=== PATIENT | female | born 1960 | race African-American/Black ===

== ENCOUNTER 2016-06-07 09:47 | Inpatient (IN) | payer MEDICAID ==
[~2016-06-07] VITALS: Ht 157.5 cm; Wt 102.5 kg
[~2016-06-07 09:47] MED LIST: ACTOS15 MG PO; ADALAT PO; ASPIRIN81 M1 PO; ATIVAN0.5 MG PO; ATIVAN1 MG PO; BACTRIM DS 800/1 TAB PO; CATAPRES0.1 MG PO; CLONIDINE0.1 M1 PO; CLONIDINE0.2 M1 PO; GLIPIZIDE5 M1 PO; GLUCOTROL10 M1 PO; GLUCOTROL10 MG PO; GLUCOTROL5 M1; LASIX20 M1 PO; LASIX40 M1 PO; LASIX40 MG PO; MACROBID100 M1 PO; METFORMIN500 MG PO; METFORMIN850 MG PO; NORCO 5/325 MG1 TAB PO; PROVENTIL0.09 MG/A1 IH; PROZAC20 M1 PO; PROZAC20 MG PO; RESPERDAL; ROBITUSSIN/CODEI5 ML PO; SEROQUEL100 MG PO; SEROQUEL300 MG; TRAZODONE HCL300 MG PO; ZANTAC150 MG PO; ZITHROMAX250 MG PO; [UNRECOGNIZED DRUG - OTHER]
[2016-06-07 09:56] VITALS: BP 116/79
--- NOTE | 2016-06-07 10:10 | NUR ---
56/F BIB c/o intermittent anterior chest wall sharp pain radiating to left flank x yesterday. PT STATES PT COUGH & SORE THROAT X 4 DAYS. hx dm, htn, kidney stone, chf;rx asa, clonidine. PT STATES HAS NAUSEA BUT DENIES V/D; SKIN IS PINK/WARM/DRY; AAOX4 WITH EVEN AND STEADY GAIT; LUNGS CLEAR BL; HR EVEN AND REGULAR; PT DENIES ANY FEVER, CP, SOB, OR COUGH AT THIS TIME; PATIENT STATES PAIN OF 10/10 AT THIS TIME; VSS; PATIENT POSITIONED FOR COMFORT; HOB ELEVATED; BEDRAILS UP X2; BED DOWN. ER MD MADE AWARE OF PT STATUS.
--- NOTE | 2016-06-07 10:10 | NUR ---
Note undone in EDM - 06/07/16 at 1022 by [email or web address] c/o intermittent anterior chest wall sharp pain radiating to left flank x yesterday; dysuria, left flank pain;hx dm, htn, kidney stone, chf;rx asa, clonidine. PATIENT PRESENTS TO ED WITH . PT STATES N BUT DENIES V/D; SKIN IS PINK/WARM/DRY; AAOX4 WITH EVEN AND STEADY GAIT; LUNGS CLEAR BL; HR EVEN AND REGULAR; PT DENIES ANY FEVER, CP, SOB, OR COUGH AT THIS TIME; PATIENT STATES PAIN OF 10/10 AT THIS TIME; VSS; PATIENT POSITIONED FOR COMFORT; HOB ELEVATED; BEDRAILS UP X2; BED DOWN. ER MD MADE AWARE OF PT STATUS.
--- NOTE | 2016-06-07 10:10 | NUR ---
Note undone in EDM - 06/07/16 at 1509 by [email or web address] 56/F BIB c/o intermittent anterior chest wall sharp pain radiating to left flank x yesterday. PT STATES PT COUGH & SORE THROAT X 4 DAYS. hx dm, htn, kidney stone, chf;rx asa, clonidine. PATIENT PRESENTS TO ED WITH . PT STATES N BUT DENIES V/D; SKIN IS PINK/WARM/DRY; AAOX4 WITH EVEN AND STEADY GAIT; LUNGS CLEAR BL; HR EVEN AND REGULAR; PT DENIES ANY FEVER, CP, SOB, OR COUGH AT THIS TIME; PATIENT STATES PAIN OF 10/10 AT THIS TIME; VSS; PATIENT POSITIONED FOR COMFORT; HOB ELEVATED; BEDRAILS UP X2; BED DOWN. ER MD MADE AWARE OF PT STATUS.
[2016-06-07] MEDS ORDERED: NITROGLYCERIN 0.4 MG TAB SL ONE (10:20)
[2016-06-07] MEDS ORDERED: HYDROmorphone 1 MG/ML AMP IVP ONE ×2 (10:40→13:35)
[2016-06-07] MEDS ORDERED: ONDANSETRON 4 MG/2 ML VIAL IVP ONE (10:40)
[2016-06-07] MEDS ORDERED: ASPIRIN 325 MG TAB PO ONE (10:40)
[2016-06-07] MEDS ORDERED: diphenhydrAMINE 50 MG/ML VIAL IVP ONE (11:20)
[2016-06-07] MEDS ORDERED: NACL 0.9% 1,000 ML IV ONE (12:00)
[2016-06-07] MEDS ORDERED: cefTRIAXone 2,000 MG in DEXTROSE 5% 100 ML IV ONE (12:00)
[2016-06-07] MEDS ORDERED: cefTRIAXone 2,000 MG VIAL ONE (12:11)
[2016-06-07] MEDS ORDERED: KETOROLAC 30 MG/ML VIAL IM ONE (13:30)
--- NOTE | 2016-06-07 15:09 | NUR ---
Patient will be admitted to care of DR FRANCOIS. Admited to ICU. Will go to room 2. Belongings list completed. Report to KOFFI MARLEY.
--- NOTE | 2016-06-07 15:09 | NUR ---
GAVE REPORT TO KOFFI MARLEY
--- NOTE | 2016-06-07 15:20 | NUR ---
RECEIVED PATIENT FROM ER AT 1520. PT IS AAOX4, ON ROOM AIR WITH NO S/S DISTRESS OR SOB. PT PLACED ON SPECIAL SHOPPER RUNNING SINUS RHYTHM AT THIS TIME. PT HAS RIGHT AC 20G IV RUNNING IVF AT THIS TIME. PT'S SKIN IS WARM, DRY, AND INTACT. PT IS AMBULATORY. PT C/O CHEST RADIATING TO LEFT FLANK. PT RECEIVED A TOTAL OF 1.5MG DILAUDID IN ER, LAST GIVEN AT 1330. SAFETY MEASURES CHECKED, CALL LIGHT LEFT AT BEDSIDE. WILL CONTINUE TO MONITOR.
--- NOTE | 2016-06-07 15:30 | NUR ---
PT ASKING FOR FOOD. NOTIFIED DIETARY AND MESSAGE LEFT.
[2016-06-07] MEDS ORDERED: HYDROmorphone 1 MG/ML AMP IVP PRN (15:35)
[2016-06-07] MEDS ORDERED: ALBUTEROL 0.083% 2.5 MG/3 ML NEBU IH PRN (15:35)
[2016-06-07] MEDS ORDERED: DEXTROSE 50% 50 ML SYR IVP PRN (15:40)
[2016-06-07] MEDS ORDERED: ZOLPIDEM 5 MG TAB PO PRN (15:40)
[2016-06-07] MEDS ORDERED: ACETAMINOPHEN 325 MG TAB PO PRN (15:40)
[2016-06-07] MEDS ORDERED: METOPROLOL 25 MG TAB PO SCH ×2 (15:50→16:30)
--- NOTE | 2016-06-07 15:50 | NUR ---
OFFERED SANDWICH FOR PATIENT.
[2016-06-07 16:00] VITALS: BP 132/85
[2016-06-07] MEDS ORDERED: ATORVASTATIN 20 MG TAB PO SCH (16:30)
[2016-06-07] MEDS: metFORMIN 850 MG TAB PO SCH (16:34)
[2016-06-07] MEDS: glipiZIDE 10 MG TAB PO SCH (16:35)
[2016-06-07] MEDS: ONDANSETRON 4 MG/2 ML VIAL IVP PRN ×2 (16:37→20:37)
[2016-06-07] MEDS: INSULIN LISPRO SLIDING SCALE 100 UNITS/ML VIAL SUBQ PRN ×2 (16:42→20:45)
[2016-06-07] MEDS: BLOOD GLUCOSE MONITORING 1 DEV DEV FS SCH ×2 (16:43→20:44)
[2016-06-07] MEDS: NACL 0.9% 1,000 ML IV SCH (16:43)
[2016-06-07] MEDS: HYDROcodone/APAP 5/325 MG 1 TAB TAB PO PRN ×2 (16:47→20:36)
--- NOTE | 2016-06-07 17:00 | NUR ---
US TECH AT BEDSIDE. PT RECEIVING JAYNE SMALL US STUDY.
--- NOTE | 2016-06-07 17:15 | NUR ---
MILK TRUCK DRIVER AT BEDSIDE.
--- NOTE | 2016-06-07 17:24 | NUR ---
DR. MOSS AT NURSING STATION. UPDATED MD ON PATIENT CONDITION.
[2016-06-07] MEDS: HYDROmorphone 1 MG/ML AMP IVP PRN (18:10)
[2016-06-07] MEDS: LORazepam 1 MG TAB PO PRN (18:11)
[2016-06-07] MEDS ORDERED: ALBUTEROL SULFATE/IPRATROPIU 3 ML SOL IH PRN (18:15)
--- NOTE | 2016-06-07 18:30 | NUR ---
REPORT GIVEN TO RICHIE RAIN.
--- NOTE | 2016-06-07 18:45 | NUR ---
PT TRANSFERRED TO TELE. ATTACHED TO TELE MONITORING. PT TOLERATED WELL.
[2016-06-07] MEDS: NICOTINE TRANSD SYS 7 MG/24 HR PATCH TD SCH (18:54)
[2016-06-07 19:00] VITALS: BP 145/83
--- NOTE | 2016-06-07 19:00 | NUR ---
RECEIVED PT FROM ICU. ALERT ORIENTEDX4. NO SOB NOTED. BREATHING EVEN AND UNLABORED. DENIES ANY PAIN OR DISCOMFORT AT THIS TIME. POSITIVE BOWEL SOUNDS NOTED ON FOUR ABDOMINAL QUADRANTS. SKIN INTACT. PT AMBULATORY. DENIES ANY PAIN WITH BOWEL OR BLADDER ELIMINATION. SKIN INTACT. VITALS STABLE AND FOLLOWS RR 21, BP 145/83, NJ 88, 02 SAT ON ROOM AIR 98%. ENDORSED TO UPCOMING SHIFT ON STABLE CONDITION.
--- NOTE | 2016-06-07 19:15 | NUR ---
RECEIVED REPORT FROM MORNING SHIFT NURSE AT BEDSIDE, PT JUST TRANSFERRED FROM ICU. PT IS AAOX4. NO SOB/DISTRESS NOTED, BREATHING EVEN AND UNLABORED, CLEAR LUNG SOUNDS, ON RA. DENIES ANY CHEST PAIN, ON TELE MONITOR WITH SR. SOFT ABD WITH POSITIVE BOWEL SOUNDS TO 4 QUADRANTS. AFEBRILE, SKIN INTACT, WARM AND DRY IN TOUCH. IV SITE TO RIGHT AC 20GA RUNNING WITH NS. ABLE TO MOVE ALL EXTREMITIES, GENERALIZED WEAKNESS NOTED, ABLE AMBULATORY WITH MINIMUM ASSIST. CONTINENT WITH B&B'S. VSS. EXPLAINED PLAN OF CARE TO PATIENT, SAFETY MEASURES MAINTAINED, CALL LIGHT WITHIN REACH, WILL CONTINUE TO MONITOR.
--- NOTE | 2016-06-07 19:39 | NUR ---
NO DISTRESS/SOB/WHEEZING NOTED AT THIS TIME. NO INDICATION FOR HHN PRN TX.
[2016-06-07 20:00] VITALS: BP 122/84
[2016-06-07] MEDS: cloNIDine 0.1 MG TAB PO SCH (20:35)
--- NOTE | 2016-06-07 20:35 | NUR ---
PT C/O SHARP CHEST PAIN, 11/30, VSS, MEDICATED AND EDUCATED. REDUCED PAIN AFTER NITROGLYCERIN GIVEN. WILL CONTINUE TO MONITOR.
[2016-06-07] MEDS: NITROGLYCERIN 0.4 MG TAB SL PRN (20:36)
[2016-06-07] MEDS: QUEtiapine FUMARATE 100 MG TAB PO SCH (20:37)
[2016-06-07] MEDS: METOPROLOL 25 MG TAB PO SCH (20:37)
--- NOTE | 2016-06-07 21:10 | NUR ---
NO C/O CHEST PAIN AT THIS TIME, SCHEDULED MEDICATION GIVEN, ACCU CHECK WITH 172MG/DL, INSULIN GIVEN ORDERED, PT TOLERATED WELL.
[2016-06-08] VITALS: BP 118/78
--- NOTE | 2016-06-08 | NUR ---
PT IS ASLEEP SOUNDLY, NO S/S OF SOB/DISTRESS, VSS.
[2016-06-08 04:00] VITALS: BP 112/72
--- NOTE | 2016-06-08 04:00 | NUR ---
NO CHANGE OF CONDITION AT THIS TIME, VSS. NO C/O CHEST PAIN
[2016-06-08] MEDS: NACL 0.9% 1,000 ML IV SCH (05:59)
[2016-06-08] MEDS: BLOOD GLUCOSE MONITORING 1 DEV DEV FS SCH ×4 (06:36→20:28)
[2016-06-08] MEDS: NITROGLYCERIN 0.4 MG TAB SL PRN (06:43)
[2016-06-08] MEDS: ONDANSETRON 4 MG/2 ML VIAL IVP PRN ×3 (06:43→12:10)
[2016-06-08] MEDS: HYDROmorphone 1 MG/ML AMP IVP PRN (06:48)
--- NOTE | 2016-06-08 07:10 | NUR ---
REPORT GIVEN TO MORNING SHIFT NURSE FOR CONTINUE OF CARE, PT IS IN STABLE CONDITION AT THIS TIME.
--- NOTE | 2016-06-08 07:15 | NUR ---
RECEIVED PATIENT REPORT. PATIENT ASLEEP BUT EASILY AROUSABLE. NO S/S OF DISTRESS NOTED. PATIENT ON ROOM AIR. IV TO THE RIGHT AC INTACT WITH IVF INFUSING WELL. PATIENT ON TELE MONITORING. BED LOWERED WITH CALL LIGHT WITHIN REACH. WILL CONTINUE TO MONITOR
--- NOTE | 2016-06-08 07:55 | NUR ---
PATIENT HAS BEEN SCREENED AND CATEGORIZED HIGH NUTRITION RISK. PATIENT WILL BE SEEN WITHIN 1-2 DAYS OF ADMISSION. 06/08/16-06/09/[address]
[2016-06-08 08:00] VITALS: BP 112/95
[2016-06-08] MEDS: ALBUTEROL SULFATE/IPRATROPIU 3 ML SOL IH SCH ×5 (08:30→23:40)
[2016-06-08] MEDS ORDERED: ALBUTEROL SULFATE/IPRATROPIU 3 ML SOL IH PRN (08:30)
[2016-06-08] MEDS ORDERED: MAG SULF 2000 MG/WATER PREMIX 100 ML IV ONE (08:35)
[2016-06-08] MEDS ORDERED: BUDESONIDE 0.5 MG/2 ML NEBU INH SCH (08:45)
--- NOTE | 2016-06-08 08:49 | NUR ---
TANN DALI HHN WAS GIVEN AT 0714 BEFORE ORDER CHANGE
[2016-06-08] MEDS: FUROSEMIDE 40 MG TAB PO SCH ×3 (09:00→12:09)
[2016-06-08] MEDS ORDERED: FUROSEMIDE 40 MG TAB PO SCH ×2 (09:00→21:00)
[2016-06-08] MEDS: NIFEdipine 60 MG TABER PO SCH (09:02)
[2016-06-08] MEDS: metFORMIN 850 MG TAB PO SCH ×4 (09:03→17:08)
[2016-06-08] MEDS: ATORVASTATIN 20 MG TAB PO SCH (09:03)
[2016-06-08] MEDS: ASPIRIN 81 MG TAB.CHEW PO SCH (09:03)
[2016-06-08] MEDS: glipiZIDE 10 MG TAB PO SCH ×2 (09:03→17:08)
[2016-06-08] MEDS: DOCUSATE SODIUM 100 MG GELCAP PO SCH (09:04)
[2016-06-08] MEDS: METOPROLOL 25 MG TAB PO SCH ×2 (09:04→20:24)
[2016-06-08] MEDS: cloNIDine 0.1 MG TAB PO SCH ×2 (09:04→20:24)
[2016-06-08] MEDS: PANTOPRAZOLE 40 MG INJ VIAL IVP SCH (09:05)
--- NOTE | 2016-06-08 10:55 | NUR ---
NOTIFIED DR MOSS ABOUT PT'S MAGNESIUM LEVEL OF 1.3
--- NOTE | 2016-06-08 11:30 | NUR ---
PT C/O CHEST PAIN. PATIENT UPSET WHEN TOLD THAT DILAUDID HAS BEEN DISCONTINUED. PT TOLD THAT NITROGLYCERIN IS ORDERED PRN FOR CHEST PAIN. PT REFUSED. DR MOSS NOTIFIED
[2016-06-08] MEDS ORDERED: HYDROmorphone 1 MG/ML AMP IVP PRN (11:45)
[2016-06-08 12:00] VITALS: BP 126/83
[2016-06-08] MEDS: INSULIN LISPRO SLIDING SCALE 100 UNITS/ML VIAL SUBQ PRN ×3 (12:25→20:26)
[2016-06-08] MEDS ORDERED: MAG SULF 2000 MG/WATER PREMIX 50 ML IV SCH (12:30)
--- NOTE | 2016-06-08 13:55 | NUR ---
PATIENT ASLEEP IN BED. NO S/S OF DISTRESS NOTED
--- NOTE | 2016-06-08 14:29 | NUR ---
06/08/16 RD INITIAL ASSESSMENT COMPLETED PLEASE REFER TO NUTRITION ASSESSMENT UNDER CARE ACTIVITY FOR ESTIMATED NUTRITIONAL NEEDS. RD RECOMMENDATIONS: CONTINUE OF CARDIAC CCHO 60 GM DIET TOLERATED. --PT MEETING 100% OF NUTRITIONAL NEEDS RD GAVE PT DM DIET EDUCATION, PT ACCEPTED. 3. RD WILL F/U 5-7 DAYS; LOW RISK. BERTRAM JEFFERSON, RD
[2016-06-08 16:00] VITALS: BP 121/75
--- NOTE | 2016-06-08 16:03 | NUR ---
PER [facility], PATIENT OOA. FAX REVIEW TO [facility] FAXED INITIAL REVIEW TO [facility] [phone] PHONE [phone]
--- NOTE | 2016-06-08 16:30 | NUR ---
ATTEMPTED MULTIPLE TIMES TO ESTABLISH A NEW IV LINE BUT UNSUCCESSFUL. MG RIDER ORDERED NOT INFUSED FULLY. DR SIN NOTIFIED. ORDERS RECEIVED
[2016-06-08] MEDS ORDERED: MAGNESIUM OXIDE 400 MG TAB PO SCH (17:00)
[2016-06-08] MEDS ORDERED: ONDANSETRON 4 MG TAB PO PRN (17:20)
[2016-06-08] MEDS: NICOTINE TRANSD SYS 7 MG/24 HR PATCH TD SCH (17:58)
[2016-06-08] MEDS: HYDROmorphone 1 MG/ML AMP IM/IV PRN ×2 (17:59→21:13)
--- NOTE | 2016-06-08 19:30 | NUR ---
RECEIVED REPORT FROM DAY RN AT BEDSIDE, PATIENT IS RESTING IN BED, AAOX4 ON ROOM AIR, NO SOB OR SIGN OF DISTRESS AT THIS TIME, PATIENT HAS NO IV ACCESS AT THIS TIME, WILL NEED TO INSERT NEW IV, SKIN INTACT, DISCUSSED PLAN OF CARE WITH PATIENT, VERBALIZED UNDERSTANDING, SAFETY MEASURES CHECKED, CALL LIGHT WITHIN REACH. WILL CONTINUE TO MONITOR.
[2016-06-08] MEDS: BUDESONIDE 0.5 MG/2 ML NEBU INH SCH (19:35)
--- NOTE | 2016-06-08 19:36 | NUR ---
PATIENT REPORT GIVEN AT BEDSIDE. ENDORSED PATIENT IN STABLE CONDITION
[2016-06-08 20:00] VITALS: BP 130/82
[2016-06-08] MEDS: LORazepam 1 MG TAB PO PRN (20:25)
[2016-06-08] MEDS: QUEtiapine FUMARATE 100 MG TAB PO SCH ×2 (20:31→21:41)
--- NOTE | 2016-06-08 20:31 | NUR ---
PM MEDS ADMINISTERED PATIENT TOLERATED WELL, PT REFUSED SEROQUEL, CALL LIGHT WITHIN REACH, NEW IV STARTED TO LFA IVF INFUSING WELL, CALL LIGHT WITHIN REACH. WILL CONTINUE TO MONITOR
--- NOTE | 2016-06-08 21:44 | NUR ---
PATIENT CHANGED HER MIND AND WANTED SEROQUEL, ADMINISTERED PER MD ORDER PATIENT TOLERATED WELL, CALL LIGHT WITHIN REACH. WILL CONTINUE TO MONITOR.
[2016-06-09] VITALS: BP 121/76
--- NOTE | 2016-06-09 00:10 | NUR ---
PATIENT SLEEPING COMFORTABLE, NO SOB OR SIGN OF DISTRESS, VITAL SIGNS STABLE, CALL LIGHT WITHIN REACH. WILL CONTINUE TO MONITOR
[2016-06-09] MEDS: HYDROmorphone 1 MG/ML AMP IM/IV PRN (02:13)
--- NOTE | 2016-06-09 02:15 | NUR ---
ADMINISTERED PAIN MED PER MD ORDER, PATIENT BACK TO SLEEP NO SOB OR SIGN OF DISTRESS, CALL LIGHT WITHIN REACH. WILL CONTINUE TO MONITOR
[2016-06-09] MEDS ORDERED: BACLOFEN 10 MG TAB PO PRN (02:45)
[2016-06-09] MEDS: ALBUTEROL SULFATE/IPRATROPIU 3 ML SOL IH SCH ×4 (03:20→15:37)
[2016-06-09 04:00] VITALS: BP 112/80
--- NOTE | 2016-06-09 04:15 | NUR ---
VITAL SIGNS STABLE, NO SOB OR SIGN OF DISTRESS, CALL LIGHT WITHIN REACH. WILL CONTINUE TO MONITOR.
[2016-06-09] MEDS: INSULIN LISPRO SLIDING SCALE 100 UNITS/ML VIAL SUBQ PRN ×3 (05:40→16:29)
[2016-06-09] MEDS: oxyCODONE/APAP 5/325 MG 1 TAB TAB PO PRN ×2 (06:00→12:08)
[2016-06-09] MEDS: BLOOD GLUCOSE MONITORING 1 DEV DEV FS SCH ×3 (06:57→16:28)
[2016-06-09] MEDS: glipiZIDE 10 MG TAB PO SCH ×2 (07:02→16:36)
[2016-06-09] MEDS: BUDESONIDE 0.5 MG/2 ML NEBU INH SCH (07:23)
--- NOTE | 2016-06-09 07:30 | NUR ---
RECEIVED REPORT FROM NIGHT NURSE. PT AOX4, ABLE TO VERBALIZE NEEDS. SURVEY INSTRUMENT OPERATOR IN PLACE. SCDS IN PLACE. IV SITE ASYMPTOMATIC, PATENT AND INTACT. IV SALINE LOCKED. PT C/O PAIN, SEE PAIN ASSESSMENT, ALREADY MEDICATED ORDERED. DISCUSSED AND REVIEWED PLAN OF CARE, PT VERBALIZES UNDERSTANDING. SAFETY MEASURES ENSURED. CALL LIGHT WITHIN REACH. WILL CONTINUE TO MONITOR.
--- NOTE | 2016-06-09 07:33 | NUR ---
ENDORSED PATIENT TO DAY RN AT BEDSIDE, PATIENT IN STABLE CONDITION
[2016-06-09 07:51] VITALS: BP 133/82
[2016-06-09] MEDS: ATORVASTATIN 20 MG TAB PO SCH (08:17)
[2016-06-09] MEDS: NIFEdipine 60 MG TABER PO SCH (08:18)
[2016-06-09] MEDS: ASPIRIN 81 MG TAB.CHEW PO SCH (08:19)
[2016-06-09] MEDS: METOPROLOL 25 MG TAB PO SCH (08:21)
[2016-06-09] MEDS: metFORMIN 850 MG TAB PO SCH ×3 (08:22→16:37)
[2016-06-09] MEDS: PANTOPRAZOLE 40 MG INJ VIAL IVP SCH (08:23)
[2016-06-09] MEDS ORDERED: TAMSULOSIN 0.4 MG CAP PO SCH ×2 (08:30)
[2016-06-09] MEDS: cloNIDine 0.1 MG TAB PO SCH (08:30)
[2016-06-09] MEDS: FUROSEMIDE 40 MG TAB PO SCH ×2 (08:31→16:37)
[2016-06-09] MEDS: DOCUSATE SODIUM 100 MG GELCAP PO SCH (08:32)
[2016-06-09] MEDS: LORazepam 1 MG TAB PO PRN (08:32)
--- NOTE | 2016-06-09 08:50 | NUR ---
MEDICATIONS ADMINISTERED WITH EDUCATION. PT VERBALIZES UNDERSTANDING. PT TOLERATED WELL. PT OBSERVED TO PERFORM ADLS INDEPENDENTLY. COOLING MEASURES IN PLACE. SAFETY MEASURES ENSURED. WILL CONTINUE TO MONITOR.
[2016-06-09] MEDS ORDERED: FLOMAX0.4 MG PO (11:55)
[2016-06-09] MEDS ORDERED: MOTRIN600 MG PO (11:55)
[2016-06-09] MEDS ORDERED: PULMICORT180 MCG/Ac IH (11:55)
[2016-06-09] MEDS ORDERED: VENTOLIN H0.09 MG/Ac IH (11:55)
[2016-06-09 12:00] VITALS: BP 118/92
[2016-06-09] MEDS ORDERED: MAGNESIUM OXIDE 400 MG TAB PO SCH (12:00)
[2016-06-09] MEDS ORDERED: NORCO 325 MG-7.1 TAB PO (12:08)
--- NOTE | 2016-06-09 12:10 | NUR ---
PT RESTING IN BED, CONDITION STABLE. ALL NEEDS MET. SAFETY MEASURES IN PLACE. WILL CONTINUE TO MONITOR.
[2016-06-09] MEDS ORDERED: COLACE100 M1 PO (12:15)
[2016-06-09] MEDS ORDERED: ADVAIR DISKUS 21 DSK IH (12:16)
[2016-06-09] MEDS ORDERED: PERCOCET 325 MG1 TA4 PO (12:55)
[2016-06-09 13:29] VITALS: BP 118/92
--- NOTE | 2016-06-09 13:35 | NUR ---
DC ORDERS ACKNOWLEDGED, DISCUSSED WITH PATIENT; PT STATES WILL PICK HER UP AFTER WORK AROUND 1600 TODAY.
--- NOTE | 2016-06-09 14:29 | NUR ---
BACLOFEN GIVEN FOR LOWER BACK SPASMS. RELAXATION TECHNIQUES AND WARM PACK APPLIED.
--- NOTE | 2016-06-09 15:30 | NUR ---
REASSESSED PT AT THIS TIME, SEEN RESTING QUIETLY IN BED.
[2016-06-09 16:00] VITALS: BP 122/71
[2016-06-09] MEDS ORDERED: oxyCODONE/APAP 5/325 MG 1 TAB TAB PO SCH (16:15)
--- NOTE | 2016-06-09 18:40 | NUR ---
DISCHARGED PT HOME AT THIS TIME IN STABLE CONDITION, BUS PASS PROVIDED BY PROJECT DESIGN ENGINEER. PRESENT.
== END 2016-06-09 18:40 | disposition home or self-care (01) | DRG 203 ==
LOC: MED 09:47 → MIC 15:06 → MTU 18:43
PROVIDERS: ADMIT Family Medicine; ATTEND Family Medicine
DX: M94.0 Chondrocostal junction syndrome [Tietze] (principal); E43 Unspecified severe protein-calorie malnutrition; D68.69 Other thrombophilia; E11.40 Type 2 diabetes mellitus with diabetic neuropathy, unspecified; I50.9 Heart failure, unspecified; E11.65 Type 2 diabetes mellitus with hyperglycemia; I11.0 Hypertensive heart disease with heart failure; J44.9 Chronic obstructive pulmonary disease, unspecified; F41.9 Anxiety disorder, unspecified; E66.01 Morbid (severe) obesity due to excess calories; E83.42 Hypomagnesemia; E78.1 Pure hyperglyceridemia; Z53.29 Procedure and treatment not carried out because of patient's decision for other reasons; R51 Headache; M79.605 Pain in left leg; M79.604 Pain in right leg; F17.210 Nicotine dependence, cigarettes, uncomplicated; N20.0 Calculus of kidney; Z88.1 Allergy status to other antibiotic agents; Z68.41 Body mass index [BMI] 40.0-44.9, adult; Z71.3 Dietary counseling and surveillance; Z88.5 Allergy status to narcotic agent; Z79.82 Long term (current) use of aspirin; Z79.899 Other long term (current) drug therapy; Z28.21 Immunization not carried out because of patient refusal

== ENCOUNTER 2016-07-26 14:06 | Emergency (ER) | payer MEDICAID ==
[~2016-07-26] VITALS: Ht 157.5 cm; Wt 99.8 kg
[~2016-07-26 14:06] MED LIST changes: +ADVAIR DISKUS 21 DSK IH; +COLACE100 M1 PO; +FLOMAX0.4 MG PO; +MOTRIN600 MG PO; +NORCO 325 MG-7.1 TAB PO; +PERCOCET 325 MG1 TA4 PO; +PULMICORT180 MCG/Ac IH; +VENTOLIN H0.09 MG/Ac IH
[2016-07-26 14:24] VITALS: BP 124/98
--- NOTE | 2016-07-26 14:31 | NUR ---
PATIENT WANTED TO WAIT IN THE WAITING ROOM. NO APPARENT DISTRESS
--- NOTE | 2016-07-26 14:31 | NUR ---
EKG REVIEWED BY MIKAELA
--- NOTE | 2016-07-26 14:47 | NUR ---
LUNG SOUNDS DIMINISHED THROUGHOUT.ERMD MADE AWARE
--- NOTE | 2016-07-26 14:48 | NUR ---
WALKED PUT OF THE ER WITH ADMITTING TO THE FRONT LOBBY TO COMPLAIN. PATIENT AMBULATED WITH STEADY GAIT/WALKED FAST WITH NO DISTRESS.NO SOB. ERMD MADE AWARE
--- NOTE | 2016-07-26 15:00 | NUR ---
PATIENT BACK TO ER LOBBY WITH SECURITY
[2016-07-26] MEDS ORDERED: ALBUTEROL SULFATE/IPRATROPIU 3 ML SOL IH ONE (15:15)
--- NOTE | 2016-07-26 15:16 | NUR ---
PATIENT TAKEN TO OF. RESP.TX AND CXR /CBC /CMP ORDERED BY MIKAELA.
--- NOTE | 2016-07-26 15:20 | NUR ---
PATIENT TAKEN TO XR
--- NOTE | 2016-07-26 15:25 | NUR ---
PATIENT OUT OF ED OVER FLOW IN RADIOLOGY ENVIRONMENTAL SCIENCE PROGRAM DIRECTOR TO ATEMPT HHN THERAPY AT A LATER TIME
--- NOTE | 2016-07-26 15:36 | NUR ---
ADMITING DX: SOB LOC AWAKE AND ALERT RESPONSIVE TO TRANSCRIPTION TYPIST VERBAL COMMANDS SITTIGN UP IN CHAIR OVERFLOW AREA EDUCATION PROVIDED TO PATIENT ON HHN THERAPY AND RESIRATORY DRUG HHN THERAPY GIVEN ORDERED ENCOURAGED DEEP BREATH AND COUGH DURING THERAPY TOLERATED WELL WITHOUT INCIDENT
--- NOTE | 2016-07-26 15:42 | NUR ---
RESP.TX IN PROGRESS
--- NOTE | 2016-07-26 15:51 | NUR ---
RESP. TX COMPLETED.PATIENT LESS COUGH. STILL IN OF. NO AVAIL. BED AT THIS TIME
--- NOTE | 2016-07-26 15:58 | NUR ---
PAIN LEVEL 8/10. WILL CONSULT ERMD FOR DISPOSITION.
--- NOTE | 2016-07-26 16:41 | NUR ---
PATIENT NO APPARENT DISTRESS. AMBULATED TO BR STEADY GAIT.USING CELL PHONE
[2016-07-26] MEDS ORDERED: HYDROcodone/APAP 10/325 MG 1 TAB TAB PO ONE (17:20)
--- NOTE | 2016-07-26 17:29 | NUR ---
MEDICATED FOR CHEST WALL PAIN WITH COUGH
[2016-07-26 18:00] VITALS: BP 150/86
--- NOTE | 2016-07-26 18:04 | NUR ---
Patient discharged with v/s stable. Written and verbal after care instructions given and explained. Patient alert, oriented and verbalized understanding of instructions. Ambulatory with steady gait. All questions addressed prior to discharge. ID band removed. Patient advised to follow up with PMD. Rx of NORTYSON DEMARCO given. Patient educated on indication of medication including possible reaction and side effects. Opportunity to ask questions provided and answered.
--- NOTE | 2016-07-26 18:05 | NUR ---
PATIENT WANTED TO KEEP ID BRACELET
== END 2016-07-26 18:04 | disposition home or self-care (01) ==
LOC: MED 14:06
DX: J44.9 Chronic obstructive pulmonary disease, unspecified (principal); E11.9 Type 2 diabetes mellitus without complications; I10 Essential (primary) hypertension; I50.9 Heart failure, unspecified
CPT/HCPCS: 36415; 71020; 80053; 85025; 94640; 99285; J7620

== ENCOUNTER 2016-11-23 12:53 | Inpatient (IN) | payer MEDICAID ==
[~2016-11-23] VITALS: Ht 157.5 cm; Wt 91.6 kg
[~2016-11-23 12:53] MED LIST changes: +ACET-5636 PO; +ACET-8386 PO; -ACTOS15 MG PO; +ADA60 PO; -ADALAT PO; -ADVAIR DISKUS 21 DSK IH; +ALBU0.0912 IH; +ASPI81CT89 PO; -ASPIRIN81 M1 PO; -ATIVAN0.5 MG PO; -ATIVAN1 MG PO; -BACTRIM DS 800/1 TAB PO; -CATAPRES0.1 MG PO; +CLON0.1T42 PO; -CLONIDINE0.1 M1 PO; -CLONIDINE0.2 M1 PO; -COLACE100 M1 PO; +DOCU-299 PO; -FLOMAX0.4 MG PO; +FLUT1DSK2 IH; +FURO-570 PO; +GLIP10TA3 PO; -GLIPIZIDE5 M1 PO; -GLUCOTROL10 M1 PO; -GLUCOTROL10 MG PO; -GLUCOTROL5 M1; -LASIX20 M1 PO; -LASIX40 M1 PO; -LASIX40 MG PO; +LORA-476 PO; -MACROBID100 M1 PO; +METF850T4 PO; -METFORMIN500 MG PO; -METFORMIN850 MG PO; -MOTRIN600 MG PO; +NITR100C7 PO; -NORCO 325 MG-7.1 TAB PO; -NORCO 5/325 MG1 TAB PO; -PERCOCET 325 MG1 TA4 PO; -PROVENTIL0.09 MG/A1 IH; -PROZAC20 M1 PO; -PROZAC20 MG PO; -PULMICORT180 MCG/Ac IH; +QUET100T PO; +RANI-287 PO; -RESPERDAL; +ROBAC PO; -ROBITUSSIN/CODEI5 ML PO; -SEROQUEL100 MG PO; -SEROQUEL300 MG; +TAMS0.4C96 PO; -TRAZODONE HCL300 MG PO; -VENTOLIN H0.09 MG/Ac IH; -ZANTAC150 MG PO; -ZITHROMAX250 MG PO; -[UNRECOGNIZED DRUG - OTHER]
--- NOTE | 2016-11-23 13:11 | NUR ---
PATIENT TO BED 4 AT THIS TIME.
--- NOTE | 2016-11-23 13:18 | NUR ---
DR KAT EVALUATING AAO PT AT BEDSIDE
--- NOTE | 2016-11-23 13:20 | NUR ---
PT PRESENTS TO ER W/C/O CHEST PAIN X2 DAYS. HX ASTHMA, DM, HTN. DENIES N/V/D; SKIN IS PINK/WARM/DRY; AAOX4 WITH EVEN AND STEADY GAIT; LUNGS CLEAR BL; HR EVEN AND REGULAR; PT DENIES ANY FEVER, CP, SOB, OR COUGH AT THIS TIME; PATIENT STATES PAIN OF 10/10 AT THIS TIME; VSS; PATIENT POSITIONED FOR COMFORT; HOB ELEVATED; BEDRAILS UP X2; BED DOWN. ER MD MADE AWARE OF PT STATUS.
[2016-11-23] MEDS ORDERED: ALBUTEROL 0.083% 2.5 MG/3 ML NEBU INH ONE (13:25)
[2016-11-23] MEDS ORDERED: NITROGLYCERIN 0.4 MG TAB SL ONE (13:25)
[2016-11-23] MEDS ORDERED: methylPREDNISolone SS 125 MG/2 ML VIAL IVP ONE (13:25)
[2016-11-23] MEDS ORDERED: ASPIRIN 81 MG TAB.CHEW PO ONE (13:25)
[2016-11-23] MEDS ORDERED: IPRATROPIUM 0.02% 0.5 MG/2.5 ML NEBU INH ONE (13:25)
[2016-11-23 14:00] LABS: BASOPHILS # (AUTO) 0.5 K/uL (0.00-0.22); EOSINOPHILS # (AUTO) 0.3 K/uL (0-0.4); HEMATOCRIT 39.3 % (36-48); HEMOGLOBIN 12.4 g/dL (12.0-16.0); LYMPHOCYTES # (AUTO) 1.8 K/uL (2.5-16.5); MEAN CORPUSCULAR HEMOGLOBIN 28 pg (27-31); MEAN CORPUSCULAR HGB CONC 32 g/dL (33-37); MEAN CORPUSCULAR VOLUME 87 fL (80-94); MONOCYTES # (AUTO) 0.4 K/uL (0.8-1.0); NEUTROPHILS # (AUTO) 5.3 K/uL (1.8-7.7); PLATELET COUNT (AUTO) 312 K/uL (140-450); RED BLOOD CELL COUNT(AUTO) 4.49 MIL/uL (4.20-5.40); RED CELL DISTRIBUTION WIDTH 13.7 % (11.6-13.7); WHITE BLOOD COUNT (AUTO) 8.3 K/uL (4.8-10.8)
[2016-11-23 14:15] LABS: PROTHROMBIN TIME 10.4 secs (10.8-13.4)
[2016-11-23 14:17] LABS: ALBUMIN 3.1 g/dL (3.4-5.0); ANION GAP 11.6 (8-16); CARBON DIOXIDE 29.8 mmol/L (21-32); CREATININE 0.6 mg/dL (0.6-1.3); POTASSIUM 3.4 mmol/L (3.5-5.1); TOTAL BILIRUBIN 0.4 mg/dL (0.0-1.0)
[2016-11-23] MEDS ORDERED: NITROGLYCERIN 2% 1 GM PKT TP ONE (14:25)
[2016-11-23] MEDS ORDERED: NITROGLYCERIN 0.4 MG TAB SL PRN (15:15)
[2016-11-23] MEDS ORDERED: LORazepam 1 MG TAB PO PRN (15:15)
[2016-11-23] MEDS ORDERED: ACETAMINOPHEN 325 MG TAB PO PRN (15:15)
[2016-11-23] MEDS ORDERED: ALUMINUM HYD/MAG/SIMETHICONE 30 ML UDC PO PRN (15:15)
[2016-11-23] MEDS ORDERED: HYDROcodone/APAP 5/325 MG 1 TAB TAB PO PRN (15:15)
[2016-11-23] MEDS ORDERED: ZOLPIDEM 5 MG TAB PO PRN (15:15)
[2016-11-23] MEDS ORDERED: ALBUTEROL HFA MDI 90 MCG/ACTUATION 8 GM INH PRN (15:15)
[2016-11-23] MEDS ORDERED: guaiFENesin/CODEINE 100/10MG 5 ML UDC PO PRN (15:15)
[2016-11-23] MEDS ORDERED: NON-FORMULARY ITEM (Oxycodone HCl/Acetaminophen (Percocet 10-325 mg Tablet) 1 TAB) PO PRN (15:15)
[2016-11-23] MEDS ORDERED: DEXTROSE 50% 50 ML SYR IVP PRN (15:30)
--- NOTE | 2016-11-23 15:53 | NUR ---
Patient will be admitted to care of DR ALBERT. Admited to TELE. Will go to room 120A. Belongings list completed. Report to KOFFI SILVERIO.
[2016-11-23 16:30] VITALS: BP 148/91
[2016-11-23] MEDS: BLOOD GLUCOSE MONITORING 1 DEV DEV FS SCH ×2 (16:30→21:03)
--- NOTE | 2016-11-23 17:00 | NUR ---
Admitted from ED, with chief complaint of CHEST PAIN X 2 DAYS. PT IS AAOX4. NO SOB NOTED. PT IS ON OXYGEN AT 2 LPM VIA NASAL CANNULA WITH O2 SATURATION OF 99%. NO C/O PAIN AT THIS TIME. IV TO LT AC PATENT AND INTACT. CHEST, DIMINISHED AIR ENTRY TO THE BASES, ABDOMEN SOFT, BOWEL SOUNDS PRESENT. +1 BLE NON PITTING EDEMA NOTED , PT IS A 56 y/o ,Female, Cooperative,oriented to call light, bed, phone,television, bathroom, smoking policy,visiting hours, procedures, ID bracelet on. Belongings list checked. INSTRUCTED PT TO CALL FOR ASSISTANCE, CALL LIGHT WITHIN REACH, PT VERBALIZED UNDERSTANDING.
[2016-11-23] MEDS: INSULIN LISPRO SLIDING SCALE 100 UNITS/ML VIAL SUBQ PRN ×2 (18:18→21:04)
--- NOTE | 2016-11-23 18:20 | NUR ---
SCD'S APPLIED ON BLE ORDERED FOR DVT PROPHYLAXIS.
[2016-11-23] MEDS: ONDANSETRON 4 MG/2 ML VIAL IVP PRN (18:25)
[2016-11-23] MEDS: HYDROmorphone 1 MG/ML AMP IVP PRN (18:28)
[2016-11-23] MEDS: metFORMIN 850 MG TAB PO SCH (18:29)
[2016-11-23] MEDS: glipiZIDE 10 MG TAB PO SCH (18:30)
--- NOTE | 2016-11-23 18:59 | NUR ---
PT RESTING. NO SOB NOTED. NO SIGNS OF PAIN AT THIS TIME. WILL ENDORSE TO NEXT SHIFT NURSE FOR CONTINUITY OF CARE.
[2016-11-23] MEDS: IPRATROPIUM 0.02% 0.5 MG/2.5 ML NEBU IH SCH (19:14)
[2016-11-23] MEDS: BUDESONIDE 0.5 MG/2 ML NEBU INH SCH (19:16)
[2016-11-23] MEDS: ALBUTEROL 0.083% 2.5 MG/3 ML NEBU IH SCH (19:17)
--- NOTE | 2016-11-23 19:25 | NUR ---
RECD. SITTING ON BED,AWAKE, A/OX4. RESPIRATION EVEN AND UNLABORED. IV SALINE LOCK AT THE LEFT AC G 22, PATENT AND INTACT. SPONGING HERSELF WITH TOWELS. OTHER SUPPLIES GIVEN REQUESTED. PLAN OF CARE FOR THE SHIFT DISCUSSED. VERBALIZED UNDERSTANDING. DENIES PAIN 0/10.
[2016-11-23 20:00] VITALS: BP 150/92
--- NOTE | 2016-11-23 20:00 | NUR ---
Patient's Plan of Care was discussed and reviewed with TEST RIDER: GRUPO PARRA.
[2016-11-23] MEDS: methylPREDNISolone SS 40 MG/ML VIAL IVP SCH (20:38)
[2016-11-23] MEDS: FAMOTIDINE 20 MG TAB PO SCH (20:58)
[2016-11-23] MEDS: QUEtiapine FUMARATE 100 MG TAB PO SCH (20:59)
[2016-11-23] MEDS ORDERED: NITROFURANTOIN 100 MG CAP PO SCH (21:00)
[2016-11-23] MEDS ORDERED: NON-FORMULARY ITEM (Ranitidine Hcl* (Zantac*) 150 MG) PO SCH (21:00)
[2016-11-23] MEDS ORDERED: NON-FORMULARY ITEM (Fluticasone/Salmeterol* (Advair 250-50 Diskus*) 1 PUFF) IH SCH (21:00)
--- NOTE | 2016-11-23 21:00 | NUR ---
SNACK GIVEN FOR THE NIGHT. AT 100%. CAME, EXPLAINED CAN'T STAY IN THE ROOM WITH PATIENT, WENT TO WAITING ROOM TO SLEEP.
[2016-11-23] MEDS: cloNIDine 0.1 MG TAB PO SCH (21:13)
--- NOTE | 2016-11-23 21:20 | NUR ---
REFUSED BLOOD DRAW FOR TROPONIN, DOES NOT WANT MALE MANDO TO TAKE HIS BLOOD, WILL WAIT FOR LADY GILMORE FROM LAB WHO WILL COME ON DUTY.
[2016-11-24] VITALS: BP 141/106
[2016-11-24] MEDS: ALBUTEROL 0.083% 2.5 MG/3 ML NEBU IH SCH ×4 (01:00→19:22)
[2016-11-24] MEDS: IPRATROPIUM 0.02% 0.5 MG/2.5 ML NEBU IH SCH ×4 (01:00→19:22)
[2016-11-24 01:07] LABS: CREATINE KINASE MB 0.9 ng/mL (0-3.6)
[2016-11-24] MEDS: NACL 0.9% 1,000 ML IV SCH ×2 (01:55→16:20)
[2016-11-24 03:45] LABS: BASOPHILS # (AUTO) 0.1 K/uL (0.00-0.22); EOSINOPHILS % (AUTO) 0.2 % (0.0-4.0); LYMPHOCYTES # (AUTO) 0.4 K/uL (2.5-16.5); MONOCYTES # (AUTO) 0.1 K/uL (0.8-1.0)
[2016-11-24 03:55] LABS: BASOPHILS % (AUTO) 1.4 % (0.0-2.0); HEMATOCRIT 38.8 % (36-48); HEMOGLOBIN 12.5 g/dL (12.0-16.0); MEAN CORPUSCULAR HEMOGLOBIN 28 pg (27-31); MEAN CORPUSCULAR HGB CONC 32 g/dL (33-37); MEAN CORPUSCULAR VOLUME 87 fL (80-94); MONOCYTES % (AUTO) 0.9 % (1.7-9.3); NEUTROPHILS # (AUTO) 8.5 K/uL (1.8-7.7); NEUTROPHILS % (AUTO) 93.1 % (42.2-75.2); PLATELET COUNT (AUTO) 307 K/uL (140-450); RED BLOOD CELL COUNT(AUTO) 4.47 MIL/uL (4.20-5.40); RED CELL DISTRIBUTION WIDTH 13.6 % (11.6-13.7); WHITE BLOOD COUNT (AUTO) 9.1 K/uL (4.8-10.8)
[2016-11-24 03:56] LABS: ANION GAP 15.2 (8-16); CARBON DIOXIDE 26.8 mmol/L (21-32); CREATININE 0.8 mg/dL (0.6-1.3)
[2016-11-24 03:59] LABS: MAGNESIUM 1.1 mg/dL (1.8-2.4); PHOSPHORUS 3.9 mg/dL (2.5-4.9)
[2016-11-24 04:00] VITALS: BP 140/88
[2016-11-24 04:00] LABS: LYMPHOCYTES % (AUTO) 4.4 % (20.5-51.1)
--- NOTE | 2016-11-24 05:10 | NUR ---
INFORMED DR. ALBERT, LACTIC ACID - 4.4, CHARGE NURSE SAID PROTOCOL IS BOLUS OF 2 LITERS. STATED PATIENT IS NOT SEPTIC. NO NEW ORDERS MADE.
[2016-11-24] MEDS: BLOOD GLUCOSE MONITORING 1 DEV DEV FS SCH ×4 (06:12→20:44)
[2016-11-24] MEDS: INSULIN LISPRO SLIDING SCALE 100 UNITS/ML VIAL SUBQ PRN ×4 (06:14→20:48)
--- NOTE | 2016-11-24 07:30 | NUR ---
RECEIVED REPORT FROM PM NURSE FOR CONTINUITY OF CARE. PT SLEEPING, AWAKENS EASILY. RESP EVEN AND UNLABORED. NO S/S OF DISTRESS, RESTLESSNESS, OR SOB. IV INTACT, NO SWELLING OR REDNESS NOTED. SKIN IS WARM AND DRY. PLAN OF CARE DISCUSSED WITH PT, VERBALIZED UNDERSTANDING. SAFETY MEASURES IN PLACED, SIDE RAILS UP, BED LOCKED ON LOW POSITION, CALL LIGHT WITHIN REACH. WILL CONTINUE TO MONITOR.
[2016-11-24] MEDS: BUDESONIDE 0.5 MG/2 ML NEBU INH SCH ×2 (07:34→19:25)
[2016-11-24 08:00] VITALS: BP 156/87
[2016-11-24] MEDS ORDERED: MAG SULF 2000 MG/WATER PREMIX 50 ML IV SCH (08:00)
[2016-11-24] MEDS: glipiZIDE 10 MG TAB PO SCH ×2 (08:27→16:54)
[2016-11-24] MEDS: ONDANSETRON 4 MG/2 ML VIAL IVP PRN ×3 (08:35→21:31)
[2016-11-24] MEDS: TAMSULOSIN 0.4 MG CAP PO SCH (08:36)
[2016-11-24] MEDS: methylPREDNISolone SS 40 MG/ML VIAL IVP SCH ×2 (08:36→21:30)
[2016-11-24] MEDS: FAMOTIDINE 20 MG TAB PO SCH ×2 (08:37→21:18)
[2016-11-24] MEDS: cloNIDine 0.1 MG TAB PO SCH ×2 (08:37→21:19)
[2016-11-24] MEDS: DOCUSATE SODIUM 100 MG GELCAP PO SCH (08:38)
[2016-11-24] MEDS: HYDROcodone/APAP 5/325 MG 1 TAB TAB PO PRN (08:38)
[2016-11-24] MEDS: NIFEdipine 60 MG TABER PO SCH (08:38)
[2016-11-24] MEDS: metFORMIN 850 MG TAB PO SCH (08:38)
[2016-11-24] MEDS: ASPIRIN 81 MG TAB.CHEW PO SCH (08:39)
[2016-11-24] MEDS: FUROSEMIDE 40 MG TAB PO SCH (08:39)
[2016-11-24] MEDS ORDERED: DOCUSATE SODIUM 100 MG GELCAP PO SCH (09:00)
--- NOTE | 2016-11-24 09:00 | NUR ---
PT REFUSED NORCO. WILL RETURN TO PHARMACY.
--- NOTE | 2016-11-24 09:20 | NUR ---
PATIENT HAS BEEN SCREENED AND CATEGORIZED MODERATE NUTRITION RISK. PATIENT WILL BE SEEN WITHIN 3-5 DAYS OF ADMISSION. 11/26/16-11/28/[address]
--- NOTE | 2016-11-24 09:30 | NUR ---
PT REFUSED BLOOD DRAWN. NOTIFIED
[2016-11-24] MEDS: HYDROmorphone 1 MG/ML AMP IVP PRN (09:39)
--- NOTE | 2016-11-24 09:56 | NUR ---
RETURNED OPENED LUDLOW TO PHARMACY.
--- NOTE | 2016-11-24 10:30 | NUR ---
PT SITTING IN BED, STATED SHE'S HUNGRY AND WANTS SANDWICH. PROVIDED PT WITH SANDWICH. PT DENIES ANY DISCOMFORT OR FURTHER NEEDS AT THIS TIME. WILL CONTINUE TO MONITOR.
[2016-11-24] MEDS ORDERED: NACL 0.9% 1,000 ML IV SCH (10:35)
[2016-11-24 12:00] VITALS: BP 140/98
--- NOTE | 2016-11-24 13:00 | NUR ---
PT RESTING IN BED QUIETLY. NO S/S OF DISTRESS, SOB, OR RESTLESSNESS. RESP EVEN AND UNLABORED. SAFETY MEASURES IN PLACED. WILL CONTINUE TO MONITOR.
[2016-11-24] MEDS: HYDROmorphone PFS 2 MG/ML SYR IVP PRN ×2 (14:10→21:31)
[2016-11-24] MEDS ORDERED: LEVOFLOXACIN 500 MG/D5W PREMIX 100 ML IV SCH (15:00)
--- NOTE | 2016-11-24 15:00 | NUR ---
RECEIVED ORDERS FROM DR JASMINE TO GET CONSENT FROM PT FOR CT OF THE CHEST WITH ANGIO CONTRAST. WILL PLACE ORDERS. ALSO TO DECREASE IVF'S FROM 200ML/HR TO 75 ML/HR. WILL PLACE ORDERS.
--- NOTE | 2016-11-24 15:30 | NUR ---
NOTIFIED BY CT THAT PT NEEDS 20G IV FOR CT CHEST ANGIO WITH CONTRAST, PT REFUSED TO GET NEW IV.
--- NOTE | 2016-11-24 15:35 | NUR ---
PT IS CRYING AND CONTINUES TO REFUSE GETTING NEW IV. WILL NOTIFY DR JASMINE.
[2016-11-24] MEDS: LEVOFLOXACIN 500 MG/D5W PREMIX 100 ML IV SCH (15:38)
[2016-11-24] MEDS: LORazepam 1 MG TAB PO PRN (15:38)
[2016-11-24 16:00] VITALS: BP 129/78
--- NOTE | 2016-11-24 16:00 | NUR ---
PAGED DR JASMINE. AWAITING FOR CALL BACK.
--- NOTE | 2016-11-24 16:50 | NUR ---
RECEIVED A CALL BACK FROM DR JASMINE, NOTIFIED HIM REGARDING PT'S REFUSAL OF NEW 20G IV. DR JASMINE STATED THAT "PT CAN REFUSE THE ANGIO BUT CANNOT REFUSE NEW IV".
--- NOTE | 2016-11-24 16:55 | NUR ---
NOTIFIED PT THE NEED FOR A NEW 20G IV. PT CONTINUES TO REFUSED, AND STATED SHE "DOES NOT WANT THE PROCEDURE".
--- NOTE | 2016-11-24 17:00 | NUR ---
PT ASKED FOR ANOTHER SANDWICH AND APPLE JUICE. REINFORCED EDUCATION, AND REMINDED PT THAT HAVING TOO MUCH JUICE WILL INCREASED HER BLOOD SUGAR LEVEL. PT VERBALIZED UNDERSTANDING.
--- NOTE | 2016-11-24 19:32 | NUR ---
ENDORSED CARE TO NURSE GRUPO. PT IS IN STABLE CONDITION.
--- NOTE | 2016-11-24 19:33 | NUR ---
Patient's Plan of Care was discussed and reviewed with PHYSICIAN PRACTICE MANAGER: GRUPO PARRA
--- NOTE | 2016-11-24 19:33 | NUR ---
RECD. RESTING IN BED, AWAKE, A/OX4. RESPIRATION EVEN AND UNLABORED. IV OF NS AT 75 ML/HR INFUSING, LEFT AC, G22. BREATHING TREATMENT ON GOING. 02 SAT - 100%. ON BILATERAL LEG SEQUENTIALS. PLAN OF CARE FOR THE SHIFT DISCUSSED. VERBALIZED UNDERSTANDING. DENIES PAIN 0/10.
[2016-11-24 20:00] VITALS: BP 132/75
--- NOTE | 2016-11-24 20:00 | NUR ---
HAVING ARGUMENT WITH THE . INFORMED AGAIN CANNOT STAY AND NO VACANT BED. HHAS CAME AND SPOKE WITH . VERBALIZED UNDERSTANDING OF PROTOCOL.
--- NOTE | 2016-11-24 20:30 | NUR ---
DISCUSSED WITH PATIENT MEDS TO BE GIVEN TONIGHT. STATED THAT SHE DOES NOT WANT SEROQUEL FOR THE NIGHT BECAUSE IT MAKES HER SLEEP LONG.
--- NOTE | 2016-11-24 20:45 | NUR ---
DR. KINCAID CAME AND SPOKE WITH PATIENT. WILL FOLLOW UP ANY NEW ORDERS.
[2016-11-24] MEDS: QUEtiapine FUMARATE 100 MG TAB PO SCH (21:00)
--- NOTE | 2016-11-24 21:31 | NUR ---
NAUSEATED, MEDICATED WITH ZOFRAN 4 MG IVP BY KOFFI SINGLETON.
--- NOTE | 2016-11-24 22:00 | NUR ---
NO NAUSEA, SLEEPING COMFORTABLY IN BED.
[2016-11-24] MEDS ORDERED: diphenhydrAMINE 50 MG CAP PO PRN (22:35)
--- NOTE | 2016-11-24 22:54 | NUR ---
SCRATCHING, COMPLAINING OF ITCHINESS ALL OVER THE BODY, MEDICATED WITH BENADRYL 50 MG. PO ORDERED.
--- NOTE | 2016-11-24 23:54 | NUR ---
NO ITCHINESS NOTED, SLEEPING COMFORTABLY IN BED.
[2016-11-25] VITALS (7 sets, daily range): BP systolic 121–145; BP diastolic 76–96
[2016-11-25] MEDS: NACL 0.9% 1,000 ML IV SCH ×5 (00:06→20:52)
[2016-11-25] MEDS: LORazepam 1 MG TAB PO PRN ×2 (00:51→15:18)
[2016-11-25] MEDS: ALBUTEROL 0.083% 2.5 MG/3 ML NEBU IH SCH ×4 (01:06→19:13)
[2016-11-25] MEDS: IPRATROPIUM 0.02% 0.5 MG/2.5 ML NEBU IH SCH ×4 (01:06→19:13)
--- NOTE | 2016-11-25 04:00 | NUR ---
STILL SLEEPING COMFORTABLY IN BED.
[2016-11-25] MEDS: HYDROmorphone PFS 2 MG/ML SYR IVP PRN ×4 (06:15→20:33)
[2016-11-25 06:20] LABS: HEMATOCRIT 35.1 % (36-48); HEMOGLOBIN 11.5 g/dL (12.0-16.0); MEAN CORPUSCULAR HEMOGLOBIN 29 pg (27-31); MEAN CORPUSCULAR HGB CONC 33 g/dL (33-37); MEAN CORPUSCULAR VOLUME 87 fL (80-94); PLATELET COUNT (AUTO) 274 K/uL (140-450); RED BLOOD CELL COUNT(AUTO) 4.03 MIL/uL (4.20-5.40); RED CELL DISTRIBUTION WIDTH 13.4 % (11.6-13.7); WHITE BLOOD COUNT (AUTO) 12.6 K/uL (4.8-10.8)
[2016-11-25] MEDS: BLOOD GLUCOSE MONITORING 1 DEV DEV FS SCH ×4 (06:23→20:56)
[2016-11-25] MEDS: INSULIN LISPRO SLIDING SCALE 100 UNITS/ML VIAL SUBQ PRN ×4 (06:25→20:58)
[2016-11-25 06:30] LABS: ANION GAP 9.4 (8-16); CREATININE 0.7 mg/dL (0.6-1.3); POTASSIUM 4.4 mmol/L (3.5-5.1)
[2016-11-25 06:36] LABS: MAGNESIUM 1.6 mg/dL (1.8-2.4); PHOSPHORUS 4.4 mg/dL (2.5-4.9)
--- NOTE | 2016-11-25 07:00 | NUR ---
ABLE TO SLEPT WELL. ALL NEEDS ATTENDED. CONDITION REMAIN STABLE. WILL ENDORSE TO AM NURSE FOR CONTINUITY OF CARE.
[2016-11-25] MEDS: BUDESONIDE 0.5 MG/2 ML NEBU INH SCH ×2 (07:08→19:13)
[2016-11-25 07:15] LABS: CREATINE KINASE MB 0.9 ng/mL (0-3.6)
--- NOTE | 2016-11-25 07:30 | NUR ---
RECEIVED REPORT FROM PM NURSE FOR CONTINUITY OF CARE. PT AAO. INITIAL ASSESSMENT DONE. RESP EVEN AND UNLABORED. NO S/S OF DISTRESS, RESTLESSNESS, OR SOB. DENIES CHEST PAIN OR DISCOMFORT. IV INTACT, NO SWELLING OR REDNESS NOTED. SKIN IS WARM AND DRY. PLAN OF CARE DISCUSSED WITH PT, VERBALIZED UNDERSTANDING. SAFETY MEASURES IN PLACED, SIDE RAILS UP, BED LOCKED ON LOW POSITION, CALL LIGHT WITHIN REACH. WILL CONTINUE TO MONITOR.
[2016-11-25 07:35] LABS: LYMPHOCYTES % (MANUAL) 10 % (20-46); MONOCYTES % (MANUAL) 2 % (5-12)
[2016-11-25] MEDS: TAMSULOSIN 0.4 MG CAP PO SCH (08:24)
[2016-11-25] MEDS: methylPREDNISolone SS 40 MG/ML VIAL IVP SCH ×2 (08:24→20:31)
[2016-11-25] MEDS: NIFEdipine 60 MG TABER PO SCH (08:25)
[2016-11-25] MEDS: ASPIRIN 81 MG TAB.CHEW PO SCH (08:25)
[2016-11-25] MEDS: DOCUSATE SODIUM 100 MG GELCAP PO SCH (08:25)
[2016-11-25] MEDS: FUROSEMIDE 40 MG TAB PO SCH (08:25)
[2016-11-25] MEDS: FAMOTIDINE 20 MG TAB PO SCH ×2 (08:26→20:31)
[2016-11-25] MEDS: cloNIDine 0.1 MG TAB PO SCH ×2 (08:26→20:32)
[2016-11-25] MEDS: glipiZIDE 10 MG TAB PO SCH ×2 (08:26→16:57)
--- NOTE | 2016-11-25 09:20 | NUR ---
PT SITTING IN BED. ASKED FOR MILK AND CRACKERS. REINFORCED TEACHING REGARDING HER DIET. PT IS UPSET, AND STATES SHE'S HUNGRY. WILL CONTINUE TO MONITOR.
--- NOTE | 2016-11-25 09:50 | NUR ---
NOTIFIED BY [employer] IF DR JASMINE WILL CONSIDER NUCLEAR MED INSTEAD OF ANGIOGRAM DUE TO PT'S CONTINUED REFUSAL OF NEW 20G IV. PAGED DR JASMINE. AWAITING FOR A CALL BACK.
--- NOTE | 2016-11-25 10:10 | NUR ---
RECEIVED CALL BACK FROM DR JASMINE. NOTIFIED REGARDING PT CONTINUED REFUSAL OF NEW 20G IV. TO SEE PT.
--- NOTE | 2016-11-25 10:15 | NUR ---
PT C/O NAUSEA, AND 7/10 PAIN. MEDICATED PER MD ORDER. WILL CONTINUE TO MONITOR.
[2016-11-25] MEDS: ONDANSETRON 4 MG/2 ML VIAL IVP PRN ×3 (10:25→20:49)
[2016-11-25] MEDS: CHLORHEXADINE GLUC 2% CLOTH TP SCH (11:58)
[2016-11-25] MEDS: MUPIROCIN 2% OINT 22 GM TUBE TP SCH (11:58)
--- NOTE | 2016-11-25 12:00 | NUR ---
PT SLEEPING, AWAKENS EASILY. NO S/S OF DISTRESS OR SOB. RESP EVEN AND UNLABORED. SAFETY MEASURES IN PLACED. WILL CONTINUE TO MONITOR.
[2016-11-25] MEDS ORDERED: MAG SULF 2000 MG/WATER PREMIX 50 ML IV SCH (13:00)
--- NOTE | 2016-11-25 14:01 | NUR ---
PT IN BED RESTING QUIETLY. RESP EVEN AND UNLABORED. DENIES DISCOMFORT OR FURTHER NEEDS AT THIS TIME. NO S/S OF SOB, OR DISTRESS. SAFETY MEASURES IN PLACED. WILL CONTINUE TO MONITOR.
--- NOTE | 2016-11-25 14:30 | NUR ---
CM NOTE CONCURRENT REVIEW FAXED TO [facility] / FAX#[phone], C: [phone]
[2016-11-25] MEDS: LEVOFLOXACIN 500 MG/D5W PREMIX 100 ML IV SCH (15:24)
--- NOTE | 2016-11-25 16:30 | NUR ---
PT IN BED RESTING QUIETLY. RESP EVEN AND UNLABORED. NO S/S OF DISTRESS. SAFETY MEASURES IN PLACED. WILL CONTINUE TO MONITOR.
--- NOTE | 2016-11-25 18:20 | NUR ---
PT IN BED. FAMILY MEMBER AT BEDSIDE. DENIES ANY DISCOMFORT OR NEEDS AT THIS TIME. NO S/S OF DISTRESS. SAFETY MEASURES IN PLACED. WILL CONTINUE TO MONITOR.
--- NOTE | 2016-11-25 19:30 | NUR ---
RECEIVED REPORT FROM DAY RN AT BEDSIDE, PATIENT IS AAOX4 ON ROOM AIR, NO SOB OR SIGN OF DISTRESS, IV TO RIGHT FA PATENT AND INTACT. SKIN INTACT. PATIENT STATES SHE IS HAVING PAIN 9/10, WILL MEDICATE PER MD ORDER. DISCUSSED PLAN OF CARE WITH PATIENT, PT VERBALIZED UNDERSTANDING. CALL LIGHT WITHIN REACH. WILL CONTINUE TO MONITOR.
--- NOTE | 2016-11-25 19:30 | NUR ---
ENDORSED CARE TO PM NURSE. PT IN STABLE CONDITION.
[2016-11-25] MEDS: QUEtiapine FUMARATE 100 MG TAB PO SCH (20:32)
--- NOTE | 2016-11-25 20:40 | NUR ---
CT CALLED TO CLARIFY DRS ORDER FOR CT ANGIO WITH CONTRAST. STATED PATIENT NEEDS IV GAUGE 18 OR 20, DISCUSSED THIS WITH PATIENT. PATIENT GOT AGITATED AND STATED SHE WILL NOT HAVE A BIGGER IV INSERTED. PATIENT REFUSES AT THIS TIME. WILL LET CT KNOW. PER DAY NURSE, IS ALREADY AWARE.
--- NOTE | 2016-11-25 20:58 | NUR ---
PM MEDS ADMINISTERED, PATIENT TOLERATED WELL, PATIENT RESTING IN BED, NO DISTRESS, CALL LIGHT WITHIN REACH. WILL CONTINUE TO MONITOR
--- NOTE | 2016-11-25 22:52 | NUR ---
PATIENT SLEEPING, NO DISTRESS, CALL LIGHT WITHIN REACH. WILL CONTINUE TO MONITOR
[2016-11-26] VITALS: BP 150/98
--- NOTE | 2016-11-26 | NUR ---
VITAL SIGNS STABLE, NO SIGN OF DISTRESS, CALL LIGHT WITHIN REACH. WILL CONTINUE TO MONITOR
--- NOTE | 2016-11-26 00:07 | NUR ---
VITAL SIGNS STABLE, NO DISTRESS, NOTED, CALL LIGHT WITHIN REACH. WILL CONTINUE TO MONITOR
[2016-11-26] MEDS: ALBUTEROL 0.083% 2.5 MG/3 ML NEBU IH SCH ×4 (01:00→18:45)
[2016-11-26] MEDS: IPRATROPIUM 0.02% 0.5 MG/2.5 ML NEBU IH SCH ×4 (01:00→18:45)
[2016-11-26] MEDS: HYDROmorphone PFS 2 MG/ML SYR IVP PRN ×6 (02:00→23:09)
[2016-11-26] MEDS: ONDANSETRON 4 MG/2 ML VIAL IVP PRN ×5 (02:01→19:40)
--- NOTE | 2016-11-26 02:50 | NUR ---
PATIENT SLEEPING, NO DISTRESS NOTED, CALL LIGHT WITHIN REACH. WILL CONTINUE TO MONITOR
[2016-11-26 04:00] VITALS: BP 150/90
--- NOTE | 2016-11-26 04:15 | NUR ---
VITAL SIGNS STABLE, NO DISTRESS CALL LIGHT WITHIN REACH. WILL CONTINUE TO MONITOR
[2016-11-26] MEDS: HYDROcodone/APAP 5/325 MG 1 TAB TAB PO PRN ×3 (04:19→21:15)
[2016-11-26 06:03] LABS: BASOPHILS # (AUTO) 0.1 K/uL (0.00-0.22); BASOPHILS % (AUTO) 0.9 % (0.0-2.0); EOSINOPHILS # (AUTO) 0.1 K/uL (0-0.4); EOSINOPHILS % (AUTO) 0.8 % (0.0-4.0); HEMATOCRIT 35.3 % (36-48); HEMOGLOBIN 11.3 g/dL (12.0-16.0); LYMPHOCYTES # (AUTO) 1.5 K/uL (2.5-16.5); LYMPHOCYTES % (AUTO) 12.4 % (20.5-51.1); MEAN CORPUSCULAR HEMOGLOBIN 28 pg (27-31); MEAN CORPUSCULAR HGB CONC 32 g/dL (33-37); MEAN CORPUSCULAR VOLUME 88 fL (80-94); MONOCYTES # (AUTO) 0.4 K/uL (0.8-1.0); NEUTROPHILS # (AUTO) 10.2 K/uL (1.8-7.7); NEUTROPHILS % (AUTO) 82.9 % (42.2-75.2); PLATELET COUNT (AUTO) 316 K/uL (140-450); RED BLOOD CELL COUNT(AUTO) 4.03 MIL/uL (4.20-5.40); RED CELL DISTRIBUTION WIDTH 13.5 % (11.6-13.7); WHITE BLOOD COUNT (AUTO) 12.3 K/uL (4.8-10.8)
[2016-11-26] MEDS: glipiZIDE 10 MG TAB PO SCH ×2 (06:36→16:56)
[2016-11-26] MEDS: INSULIN LISPRO SLIDING SCALE 100 UNITS/ML VIAL SUBQ PRN ×4 (06:44→21:41)
[2016-11-26 06:54] LABS: ANION GAP 10.5 (8-16); CARBON DIOXIDE 32.9 mmol/L (21-32); CREATININE 0.7 mg/dL (0.6-1.3); POTASSIUM 4.4 mmol/L (3.5-5.1)
[2016-11-26] MEDS: BLOOD GLUCOSE MONITORING 1 DEV DEV FS SCH ×4 (07:01→21:26)
[2016-11-26] MEDS: BUDESONIDE 0.5 MG/2 ML NEBU INH SCH ×2 (07:08→18:45)
--- NOTE | 2016-11-26 07:25 | NUR ---
RECEIVED PT IN BED. AWAKE. ALERT ORIENTEDX4. NO SOB NOTED ON O2 AT 2LPM NC. DENIES ANY PAIN OR DISCOMFORT AT THIS TIME. POSITIVE BOWEL SOUND NOTED ON FOUR QUADRANTS. PT AMBULATORY. SAFETY PRECAUTION IN PLACE. CALL LIGHT WITHIN REACH.
--- NOTE | 2016-11-26 07:25 | NUR ---
ENDORSED PATIENT TO DAY RN AT BEDSIDE, PATIENT IN STABLE CONDITION
[2016-11-26 08:00] VITALS: BP 132/100
[2016-11-26] MEDS: DOCUSATE SODIUM 100 MG GELCAP PO SCH (08:36)
[2016-11-26] MEDS: ASPIRIN 81 MG TAB.CHEW PO SCH (08:36)
[2016-11-26] MEDS: TAMSULOSIN 0.4 MG CAP PO SCH (08:36)
[2016-11-26] MEDS: FUROSEMIDE 40 MG TAB PO SCH (08:36)
[2016-11-26] MEDS: NIFEdipine 60 MG TABER PO SCH (08:37)
[2016-11-26] MEDS: FAMOTIDINE 20 MG TAB PO SCH ×2 (08:37→21:14)
[2016-11-26] MEDS: methylPREDNISolone SS 40 MG/ML VIAL IVP SCH ×2 (08:37→21:14)
[2016-11-26] MEDS: cloNIDine 0.1 MG TAB PO SCH ×2 (08:37→21:15)
[2016-11-26] MEDS ORDERED: MUPIROCIN 2% OINT 22 GM TUBE TP SCH (09:00)
--- NOTE | 2016-11-26 10:28 | NUR ---
PAGED PRINCESS ARAIZA TO CLARIFY ORDER FOR IVF, SOME SWELLING NOTED ON PT'S ARM. IVF LINE FLUSHING GOOD. PT SA CHF. AWAITING CALL BACK.
[2016-11-26] MEDS: MUPIROCIN 2% OINT 22 GM TUBE TP SCH (10:38)
[2016-11-26] MEDS: CHLORHEXADINE GLUC 2% CLOTH TP SCH (10:44)
--- NOTE | 2016-11-26 11:00 | NUR ---
SPOKE WITH DR. PRINCESS ALBERT, ACCORDING TO HIM THE FULL CHARGE BOOKKEEPER WAS THE ONE WHO PUT IN AN ORDER FOR IVF. PER CHARGE NURSE LUANA LIN, MIGHT COME AND SEE PT. AWAITING .
--- NOTE | 2016-11-26 11:45 | NUR ---
MARY GRACE FROM RADIOLOGY DEPT CAME TO SEE PT. PT AGREES TO DO THE CT OF CHEST WITH CONTRAST. AND THEY WILL COME TO FISHING INSTRUCTOR PT AFTER LUNCH. WILL INSERT NEW IV LINE G 12 OR 20. CONSENT SIGNED AND IN TO CHART.
[2016-11-26 12:00] VITALS: BP 126/88
[2016-11-26] MEDS: LORazepam 1 MG TAB PO PRN (12:00)
--- NOTE | 2016-11-26 12:12 | NUR ---
CLARIFIED WITH MARY GRACE REGARDING CT OF CHEST WITH CONTRAST IF PT CAN EAT. PER MARY GRACE, PT CAN EAT.
--- NOTE | 2016-11-26 12:30 | NUR ---
IV LINE WASN'T ABLE TO GET FOR G.20. CHARGE NURSE AWARE. MARY GRACE FROM RADIOLOGY DEPT AWARE. AWAITING DR. LIN, NEPHROLOGY TO COME AND SEE PT.
[2016-11-26] MEDS: LEVOFLOXACIN 500 MG/D5W PREMIX 100 ML IV SCH (14:37)
--- NOTE | 2016-11-26 15:05 | NUR ---
I CALLED [facility] AND SPOKE WITH LORENA. SHE SAID TO FAX REVIEW TO THEM AT [phone]. THE CM IS MASSIEL [phone]. SHE SAID REVIEWS JUST GO TO [facility]. FAXED REVIEW TO [facility].
--- NOTE | 2016-11-26 15:45 | NUR ---
PT REQUESTED DILAUDID FOR HER BACK PAIN OF 8/. AND REQUESTED NORCO VERBALIZING THAT PAIN IS GOING BACK UP.
[2016-11-26 16:00] VITALS: BP 134/90
--- NOTE | 2016-11-26 16:35 | NUR ---
DR. JASMINE CAME TO SEE PT. CLARIFIED WITH DR. JASMINE REGARDING ORDER FOR CT OF CHEST WITH CONTRAST. PER DR. JASMINE HE SAID HE CHANGED THE ORDER TO CT WITHOUT CONTRAST TO RULE OUT PE. CLARIFIED IV FLUID ORDER SINCE PT HAS CHF. PER DR. JASMINE DC IV FLUIDS, PUT PT ON SALINE LOCK, SINCE PT IS EATING. CALLED RADIOLOGY DEPT MADE AWARE OF ORDER, SPOKE WITH ABBI.
--- NOTE | 2016-11-26 19:26 | NUR ---
PT KEPT CLEAN, DRY AND COMFORTABLE, NEEDS ATTENDED, PT ON STABLE CONDITION. ENDORSED TO NEXT SHIFT FOR CONTINUITY OF CARE.
--- NOTE | 2016-11-26 19:30 | NUR ---
RECEIVED REPORT FROM DAY RN AT BEDSIDE, PATIENT IS AAO X4 ON ROOM AIR. NO SOB OR SIGN OF DISTRESS. IV TO RIGHT FOREARM PATENT AND INTACT. SKIN INTACT. PATIENT DENIES PAIN, BUT C/O NAUSEA. WILL MEDICATE. DISCUSSED PLAN OF CARE WITH PATIENT ,PATIENT VERBALIZED UNDERSTANDING. CALL LIGHT WITHIN REACH. WILL CONTINUE TO MONITOR
[2016-11-26 20:00] VITALS: BP 123/66
[2016-11-26] MEDS: QUEtiapine FUMARATE 100 MG TAB PO SCH (21:14)
--- NOTE | 2016-11-26 21:31 | NUR ---
PM MEDS ADMINISTERED, PATIENT TOLERATED WELL, CALL LIGHT WITHIN REACH. WILL CONTINUE TO MONITOR.
[2016-11-27] VITALS: BP 135/80
--- NOTE | 2016-11-27 | NUR ---
VITAL SIGNS STABLE, NO SIGN OF DISTRESS, CALL LIGHT WITHIN REACH. WILL CONTINUE TO MONITOR
--- NOTE | 2016-11-27 02:00 | NUR ---
PATIENT SLEEPING, NO DISTRESS NOTED, CALL LIGHT WITHIN REACH. WILL CONTINUE TO MONITOR
[2016-11-27 04:00] VITALS: BP 125/80
[2016-11-27] MEDS: HYDROmorphone PFS 2 MG/ML SYR IVP PRN ×3 (04:28→13:22)
[2016-11-27] MEDS: ONDANSETRON 4 MG/2 ML VIAL IVP PRN ×3 (04:29→13:22)
--- NOTE | 2016-11-27 04:30 | NUR ---
VITALS STABLE, NO DISTRESS NOTED, WILL CONTINUE TO MONITOR
--- NOTE | 2016-11-27 04:30 | NUR ---
CALLED RADIOLOGY TO ASK ABOUT CT TEST, THEY CAME TO SPEAK TO PATIENT. PATIENT TOLD THEM SHE DIDNT FEEL GOOD, IF THEY COULD DO IT IN THE MORNING. RADIOLOGY STATED THEY WILL COME LATER IN THE MORNING
[2016-11-27] MEDS: BLOOD GLUCOSE MONITORING 1 DEV DEV FS SCH ×2 (06:25→11:47)
[2016-11-27] MEDS: glipiZIDE 10 MG TAB PO SCH (06:30)
[2016-11-27] MEDS: HYDROcodone/APAP 5/325 MG 1 TAB TAB PO PRN (06:30)
[2016-11-27] MEDS: INSULIN LISPRO SLIDING SCALE 100 UNITS/ML VIAL SUBQ PRN ×2 (06:36→11:46)
--- NOTE | 2016-11-27 07:10 | NUR ---
ENDORSED PATIENT TO DAY RN AT BEDSIDE, PATIENT IN STABLE CONDITION
--- NOTE | 2016-11-27 07:11 | NUR ---
RECEIVED PT IN BED. AWAKE. ALERT ORIENTEDX4. NO SOB NOTED. POSITIVE BOWEL SOUNDS NOTED ON FOUR QUADRANTS. PT AMBULATORY. SAFETY PRECAUTION IN PLACE. CALL LIGHT WITHIN REACH.
--- NOTE | 2016-11-27 07:17 | NUR ---
AWAKE AND ALERT NO SOB NOTED PATIENT CONDUCTING PHYSICAL HYGIENE AT THIS TIME [facility] TO ATTEMPT HHN THERAPY AT A LATER TIME
[2016-11-27 07:20] LABS: HEMATOCRIT 36.6 % (36-48); HEMOGLOBIN 11.9 g/dL (12.0-16.0); MEAN CORPUSCULAR HEMOGLOBIN 28 pg (27-31); MEAN CORPUSCULAR HGB CONC 33 g/dL (33-37); MEAN CORPUSCULAR VOLUME 87 fL (80-94); PLATELET COUNT (AUTO) 311 K/uL (140-450); RED BLOOD CELL COUNT(AUTO) 4.21 MIL/uL (4.20-5.40); RED CELL DISTRIBUTION WIDTH 13.5 % (11.6-13.7); WHITE BLOOD COUNT (AUTO) 12.5 K/uL (4.8-10.8)
[2016-11-27 07:26] LABS: ANION GAP 7.7 (8-16); CARBON DIOXIDE 36.8 mmol/L (21-32); CREATININE 0.7 mg/dL (0.6-1.3); POTASSIUM 4.5 mmol/L (3.5-5.1)
[2016-11-27] MEDS: BUDESONIDE 0.5 MG/2 ML NEBU INH SCH (07:34)
[2016-11-27] MEDS: IPRATROPIUM 0.02% 0.5 MG/2.5 ML NEBU IH SCH ×3 (07:34→14:05)
[2016-11-27] MEDS: ALBUTEROL 0.083% 2.5 MG/3 ML NEBU IH SCH ×3 (07:34→14:05)
[2016-11-27 07:50] LABS: LYMPHOCYTES % (MANUAL) 15 % (20-46); MONOCYTES % (MANUAL) 3 % (5-12)
[2016-11-27 08:00] VITALS: BP 132/93
[2016-11-27] MEDS: NIFEdipine 60 MG TABER PO SCH (09:12)
[2016-11-27] MEDS: DOCUSATE SODIUM 100 MG GELCAP PO SCH (09:12)
[2016-11-27] MEDS: FUROSEMIDE 40 MG TAB PO SCH (09:12)
[2016-11-27] MEDS: ASPIRIN 81 MG TAB.CHEW PO SCH (09:12)
[2016-11-27] MEDS: FAMOTIDINE 20 MG TAB PO SCH (09:12)
[2016-11-27] MEDS: cloNIDine 0.1 MG TAB PO SCH (09:12)
[2016-11-27] MEDS: methylPREDNISolone SS 40 MG/ML VIAL IVP SCH (09:13)
[2016-11-27] MEDS: TAMSULOSIN 0.4 MG CAP PO SCH (09:13)
[2016-11-27] MEDS: MUPIROCIN 2% OINT 22 GM TUBE TP SCH (10:45)
[2016-11-27] MEDS: CHLORHEXADINE GLUC 2% CLOTH TP SCH (10:49)
--- NOTE | 2016-11-27 11:34 | NUR ---
FOLLOWED UP WITH RADIOLOGY DEPT MARY GRACE FOR CT SCAN WITHOUT CONTRAST. HE SAID HE WILL COME AT 1230.
[2016-11-27] MEDS: LORazepam 1 MG TAB PO PRN (11:44)
[2016-11-27 12:00] VITALS: BP 128/85
--- NOTE | 2016-11-27 14:28 | NUR ---
11/27/16 RD INITIAL ASSESSMENT COMPLETED PLEASE REFER TO NUTRITION PROGRESS NOTES UNDER CARE ACTIVITY FOR ESTIMATED NUTRITIONAL NEEDS. RD RECOMMENDATIONS: 1- RECOMMEND CONTINUE CURRENT DIET 60G CCHO CARDIAC. 2- FOLLOW UP IN 3-5 DAYS; MODERATE RISK. CHAPINCITO CONNOLLY MBA, RD
--- NOTE | 2016-11-27 14:36 | NUR ---
PATIENT WANTS TO SIGN AMA, DR. Omar ALBERT NOTIFIED.
--- NOTE | 2016-11-27 14:49 | NUR ---
PT VERBALIZED SHE NEEDED TO GET HOME BECAUSE HER SON NEEDS THE HOUSE [place] AND SHE HAS IT, AND SHE WANTS TO LEAVE THE HOSPITAL. EXPLAINED RISKS OF GOING HOME AGAINST MEDICAL ADVICE. BUT PT STILL INSISTED. DR. ALBERT MADE AWARE OF CHARGE NURSE. PT SIGNED AMA FORM. IV CANNULA REMOVED AND INTACT. TELEMONITOR REMOVED. NAME ARMBAND REMOVED. NO SOB NOTED. DENIES ANY PAIN OR DISCOMFORT AT THIS TIME. CAME TO HOSPITALITY MANAGER PT. PT WALKED GOING OUT OF THE HOSPITAL WITH .
== END 2016-11-27 14:50 | disposition left against medical advice (07) | DRG 720 ==
LOC: MED 12:53 → MTU 15:22
PROVIDERS: ADMIT Preventive Medicine Preventive Medicine/Occupational Environmental Medicine; ATTEND Preventive Medicine Preventive Medicine/Occupational Environmental Medicine
DX: A41.9 Sepsis, unspecified organism (principal); J96.01 Acute respiratory failure with hypoxia; I42.9 Cardiomyopathy, unspecified; I11.0 Hypertensive heart disease with heart failure; J18.9 Pneumonia, unspecified organism; I50.9 Heart failure, unspecified; E83.42 Hypomagnesemia; E11.65 Type 2 diabetes mellitus with hyperglycemia; D64.9 Anemia, unspecified; F99 Mental disorder, not otherwise specified; N20.0 Calculus of kidney; J45.909 Unspecified asthma, uncomplicated; R10.13 Epigastric pain; J44.1 Chronic obstructive pulmonary disease with (acute) exacerbation; F19.90 Other psychoactive substance use, unspecified, uncomplicated; F41.9 Anxiety disorder, unspecified; E87.5 Hyperkalemia; G89.29 Other chronic pain; Z53.21 Procedure and treatment not carried out due to patient leaving prior to being seen by health care provider; I25.10 Atherosclerotic heart disease of native coronary artery without angina pectoris; Z22.322 Carrier or suspected carrier of Methicillin resistant Staphylococcus aureus; Z82.49 Family history of ischemic heart disease and other diseases of the circulatory system; Z88.1 Allergy status to other antibiotic agents; Z88.6 Allergy status to analgesic agent; Z98.891 History of uterine scar from previous surgery; Z87.442 Personal history of urinary calculi; Z87.891 Personal history of nicotine dependence; Z79.82 Long term (current) use of aspirin; Z79.1 Long term (current) use of non-steroidal anti-inflammatories (NSAID); Z79.891 Long term (current) use of opiate analgesic; Z79.899 Other long term (current) drug therapy
CPT/HCPCS: 36415; 36600; 71010; 76770; 80048; 80053; 82550; 82553; 82803; 82948; 83605; 83735; 83880; 84100; 84484; 85025; 85610; 85651; 85730; 86140; 87040; 87081; 87086; 93005; 94640; 96374; 99285; J1170; J1644; J1815; J1956; J2405; J2920; J2930; J3475; J7030; J7613; J7626; J7644; Q0092; Q0163

== ENCOUNTER 2016-12-10 08:16 | Inpatient (IN) | payer MEDICAID ==
[~2016-12-10] VITALS: Ht 157.5 cm; Wt 93.0 kg
[2016-12-10 08:19] VITALS: BP 121/74
--- NOTE | 2016-12-10 08:28 | NUR ---
PATIENT PRESENTS TO ED WITH c/o chest pain radiating to back x this morning hx dm ;htn;chf; DENIES N/V/D; SKIN IS PINK/WARM/DRY; AAOX4 WITH EVEN AND STEADY GAIT; LUNGS CLEAR BL; HR EVEN AND REGULAR; PT DENIES ANY FEVER, CP, SOB, OR COUGH AT THIS TIME; PATIENT STATES PAIN OF 10/10 AT THIS TIME; VSS; PATIENT POSITIONED FOR COMFORT; HOB ELEVATED; BEDRAILS UP X2; BED DOWN. ER MD MADE AWARE OF PT STATUS.
[2016-12-10] MEDS ORDERED: NITROGLYCERIN 0.4 MG TAB SL ONE (08:35)
[2016-12-10] MEDS ORDERED: ASPIRIN 81 MG TAB.CHEW PO ONE (08:35)
[2016-12-10 08:58] LABS: BASOPHILS # (AUTO) 0.1 K/uL (0.00-0.22); EOSINOPHILS # (AUTO) 0.2 K/uL (0-0.4); EOSINOPHILS % (AUTO) 2.8 % (0.0-4.0); HEMATOCRIT 40.9 % (36-48); HEMOGLOBIN 13.4 g/dL (12.0-16.0); LYMPHOCYTES # (AUTO) 1.7 K/uL (2.5-16.5); LYMPHOCYTES % (AUTO) 23.1 % (20.5-51.1); MEAN CORPUSCULAR HEMOGLOBIN 29 pg (27-31); MEAN CORPUSCULAR HGB CONC 33 g/dL (33-37); MEAN CORPUSCULAR VOLUME 87 fL (80-94); MONOCYTES # (AUTO) 0.6 K/uL (0.8-1.0); NEUTROPHILS # (AUTO) 4.6 K/uL (1.8-7.7); NEUTROPHILS % (AUTO) 64.1 % (42.2-75.2); PLATELET COUNT (AUTO) 318 K/uL (140-450); RED BLOOD CELL COUNT(AUTO) 4.69 MIL/uL (4.20-5.40); RED CELL DISTRIBUTION WIDTH 14.1 % (11.6-13.7); WHITE BLOOD COUNT (AUTO) 7.2 K/uL (4.8-10.8)
[2016-12-10 09:07] LABS: BARBITURATE, URINE NEG. ng/ml (NEG <=200); BENZODIAZEPINE, URINE NEG. ng/mL (NEG <=200); CANNABINOID, URINE NEG. ng/mL (NEG <=50); COCAINE, URINE NEG. ng/mL (NEG <=300); OPIATE, URINE NEG. ng/mL (NEG <=2000); PHENCYCLIDINE SCREEN,URINE NEG. ng/mL (NEG <=25)
[2016-12-10 09:12] LABS: PROTHROMBIN TIME 9.4 secs (10.8-13.4)
[2016-12-10 09:17] LABS: ALBUMIN 3.4 g/dL (3.4-5.0); ANION GAP 12.8 (8-16); CARBON DIOXIDE 26.3 mmol/L (21-32); CREATININE 0.8 mg/dL (0.6-1.3); POTASSIUM 4.1 mmol/L (3.5-5.1); TOTAL BILIRUBIN 0.3 mg/dL (0.0-1.0)
[2016-12-10] MEDS ORDERED: INSULIN HUMAN REGULAR 100 UNITS/ML 10 ML VIAL SUBQ ONE (09:30)
[2016-12-10 09:41] LABS: APPEARANCE,URINE HAZY (CLEAR); BILIRUBIN,URINE NEGATIVE (NEGATIVE); BLOOD, URINE TRACE-I (NEGATIVE); COLOR,URINE YELLOW (YELLOW); LEUKOCYTE ESTERASE ,URINE NEGATIVE (NEGATIVE); NITRITE, URINE NEGATIVE (NEGATIVE); PH,URINE 5.5 (5.0-9.0); UGLUCOSE 3+ (NEGATIVE)
[2016-12-10 10:04] LABS: RBC,URINE 3-10 (FEW) /HPF (0-5)
[2016-12-10 10:05] LABS: WBC,URINE 0-5 (RARE) /HPF (0-5); YEAST,URINE Rare /HPF (None Seen)
[2016-12-10] MEDS ORDERED: NACL 0.9% 1,000 ML IV ONE (10:15)
[2016-12-10] MEDS: NACL 0.9% 1,000 ML IV SCH ×2 (10:29→22:45)
[2016-12-10] MEDS ORDERED: DOCUSATE SODIUM 100 MG GELCAP PO PRN (10:30)
[2016-12-10] MEDS ORDERED: ACETAMINOPHEN 325 MG TAB PO PRN (10:30)
[2016-12-10] MEDS ORDERED: HYDROcodone/APAP 7.5/325 MG 1 TAB PO PRN (10:30)
--- NOTE | 2016-12-10 10:42 | NUR ---
Patient will be admitted to care of DR SCHOFIELD. Admited to TELE. Will go to room 105B. Belongings list completed. Report to KOFFI SOSA.
[2016-12-10] MEDS ORDERED: guaiFENesin/CODEINE 100/10MG 5 ML UDC PO PRN (10:50)
[2016-12-10 10:57] LABS: CHOL/HDL RATIO 3.4 (1-4.5); FREE T4 (FREE THYROXINE) 1.03 ng/dL (0.76-1.46); MAGNESIUM 1.6 mg/dL (1.8-2.4); PHOSPHORUS 3.8 mg/dL (2.5-4.9); THYROID STIMULATING HORMONE 0.4 uIU/mL (0.34-3.74)
[2016-12-10] MEDS ORDERED: NITROGLYCERIN 0.4 MG TAB SL PRN (11:00)
[2016-12-10] MEDS ORDERED: ALBUTEROL SULFATE/IPRATROPIU 3 ML SOL IH PRN (11:00)
--- NOTE | 2016-12-10 11:00 | NUR ---
PT ARRIVED IN THE UNIT IN STABLE CONDITION,ORIENTED TO UNIT, NO DISTRESS NOTED, AAOX4, IV TO THE R H 24G RUNNING NS, INFUSING WELL, PT REPORTED OF CHEST PAIN OF 10/10 THAT RADIATES TO THE BACK, PT RESTING, CALL LIGHT WITHIN REACH, WILL CONTINUE TO MONITOR.
[2016-12-10] MEDS ORDERED: DEXTROSE 50% 50 ML SYR IVP PRN (11:05)
[2016-12-10 11:42] VITALS: BP 121/80
[2016-12-10] MEDS: BLOOD GLUCOSE MONITORING 1 DEV DEV FS SCH ×3 (12:02→20:42)
[2016-12-10] MEDS: metFORMIN 850 MG TAB PO SCH ×2 (12:13→16:17)
--- NOTE | 2016-12-10 12:13 | NUR ---
PT STATED HAVING CHEST PAIN OF 10/10, INFORMED DR RONAL SAID TO GIVE NORCO.
[2016-12-10] MEDS: INSULIN LISPRO SLIDING SCALE 100 UNITS/ML VIAL SUBQ PRN ×3 (12:25→20:53)
[2016-12-10] MEDS: ONDANSETRON 4 MG/2 ML VIAL IM/IVP PRN ×3 (12:26→21:05)
[2016-12-10] MEDS: ALBUTEROL SULFATE/IPRATROPIU 3 ML SOL IH SCH ×2 (13:02→18:53)
--- NOTE | 2016-12-10 13:22 | NUR ---
PT SLEEPING EASY TO AROUSE, NEW IV BAG INFUSION CHANGED, IV INFUSING WELL 24G TO THE R HAND RUNNING NS @60ML/HR. CALL LIGHT WITHIN REACH, WILL CONTINUE TO MONITOR.
[2016-12-10] MEDS ORDERED: MECLIZINE 25 MG TAB PO PRN (15:05)
--- NOTE | 2016-12-10 15:34 | NUR ---
PT SIGNED AUTHORIZATION TO RELEASE RECORD FROM [facility]. AUTHORIZATION FAXED TO [facility].
[2016-12-10] MEDS: HYDROmorphone 1 MG/ML AMP IVP PRN (16:13)
[2016-12-10] MEDS: glipiZIDE 10 MG TAB PO SCH (16:17)
--- NOTE | 2016-12-10 16:25 | NUR ---
WASTED 0.5MG OF DILAUDID WITH EZEQUIEL RAIN.
--- NOTE | 2016-12-10 16:25 | NUR ---
GIVEN 0.5 MG DILAUDID, FOR PAIN OF 10/10, PT RESTING , NO DISTRESS NOTED, CALL LIGHT WITHIN REACH, WASTED 0.5 MG OF DILAUDID WITH SHEILA RAIN.
[2016-12-10 16:30] VITALS: BP 148/102
[2016-12-10 16:35] VITALS: BP 123/88
[2016-12-10 16:40] VITALS: BP 116/78
--- NOTE | 2016-12-10 17:10 | NUR ---
ASSIST PT WITH ADL'S, PT TOLERATED WELL, NOW RESTING, CALL LIGHT WITHIN REACH, NO DISTRESS NOTED, REPORTED NO PAIN, WILL CONTINUE TO MONITOR.
--- NOTE | 2016-12-10 18:00 | NUR ---
NEURO CHECK DONE ON PT, PUPIL EQUAL PERRLA, 3MM, FEELING LEFT SIDE MORE STRONGER THAN THE RIGHT SIDE ON THE FACE, AND EXTREMITIES.
--- NOTE | 2016-12-10 18:31 | NUR ---
PT WHEELED TO CT, PT STABLE.
--- NOTE | 2016-12-10 18:43 | NUR ---
PT WHEELED BACK TO ROOM, STABLE, NO DISTRESS NOTED, WILL CONTINUE TO MONITOR.
--- NOTE | 2016-12-10 19:20 | NUR ---
ENDORSE PT TO NIGHT NURSE BY BED SIDE, PT STABLE, NO DISTRESS NOTED, CALL LIGHT WITHIN REACH.
--- NOTE | 2016-12-10 19:22 | NUR ---
RECEIVED REPORT FROM AM NURSE. PT SLEEPING, EASY TO AROUSE. NO SIGNS OF ACUTE DISTRESS NOTED. IV ACCESS ASYMPTOMATIC, INTACT AND PATENT. BEDSIDE COMMODE IN PLACE. ON ROOM AIR. BED ON LOW POSITION, BILATERAL HALF SIDE RAILS UP, CALL LIGHT WITHIN REACH, WILL CONTINUE TO MONITOR.
[2016-12-10 20:00] VITALS: BP 129/88
[2016-12-10] MEDS: cloNIDine 0.1 MG TAB PO SCH (20:45)
[2016-12-10] MEDS: QUEtiapine FUMARATE 100 MG TAB PO SCH (20:47)
[2016-12-10] MEDS: ATORVASTATIN 20 MG TAB PO SCH (20:47)
[2016-12-10] MEDS ORDERED: NON-FORMULARY ITEM (Ranitidine Hcl* (Zantac*) 150 MG) PO SCH (21:00)
[2016-12-10] MEDS ORDERED: FAMOTIDINE 20 MG TAB PO SCH (21:00)
[2016-12-11] VITALS: BP 106/79
[2016-12-11] MEDS: HYDROmorphone 1 MG/ML AMP IVP PRN ×4 (00:37→19:16)
--- NOTE | 2016-12-11 02:33 | NUR ---
PT IS SLEEPING, EASY TO AROUSE. NO SIGS OF ACUTE DISTRESS NOTED. BED ON LOW POSITION, BILATERAL HALF SIDE RAILS UP, CALL LIGHT WITHIN REACH, WILL CONTINUE TO MONITOR.
[2016-12-11] MEDS: KETOROLAC 15 MG/ML VIAL IVP PRN ×4 (03:09→23:39)
[2016-12-11 04:00] VITALS: BP 118/90
--- NOTE | 2016-12-11 04:13 | NUR ---
PATIENT LYING IN BED SLEEPING, EASY TO AROUSE. NO DISTRESS NOTED. RESPIRATIONS EVEN, UNLABORED, ON ROOM AIR. IV PATENT, INTACT AND INFUSING. SAFETY MEASURES IN PLACE, CALL LIGHT WITHIN REACH. BED ON LOW POSITION, BILATERAL HALF SIDE RAILS UIP, WILL CONTINUE TO MONITOR.
--- NOTE | 2016-12-11 05:25 | NUR ---
PT SLEEPING, EASY TO AROUSE. NO DISTRESS NOTED. RESPIRATIONS EVEN, UNLABORED, ON ROOM AIR. SAFETY MEASURES IN PLACE, CALL LIGHT WITHIN REACH. BED ON LOW POSITION, BILATERAL HALF SIDE RAILS UIP, WILL CONTINUE TO MONITOR.
[2016-12-11 06:17] LABS: ANION GAP 9.7 (8-16); CARBON DIOXIDE 27.3 mmol/L (21-32); CREATININE 0.6 mg/dL (0.6-1.3)
[2016-12-11] MEDS: BLOOD GLUCOSE MONITORING 1 DEV DEV FS SCH ×4 (06:45→20:35)
[2016-12-11] MEDS: INSULIN LISPRO SLIDING SCALE 100 UNITS/ML VIAL SUBQ PRN ×4 (06:46→20:38)
[2016-12-11] MEDS: glipiZIDE 10 MG TAB PO SCH ×2 (07:04→16:42)
[2016-12-11] MEDS: ALBUTEROL SULFATE/IPRATROPIU 3 ML SOL IH SCH ×3 (07:16→18:55)
[2016-12-11] MEDS: ONDANSETRON 4 MG/2 ML VIAL IM/IVP PRN ×3 (07:22→18:02)
--- NOTE | 2016-12-11 07:42 | NUR ---
ENDORSED PT TO AM NURSE FOR CONTINUITY OF CARE. PT IS IN STABLE CONDITION.
--- NOTE | 2016-12-11 07:45 | NUR ---
RECEIVED REPORT FROM SUPERVISOR OF OFFICIALS NURSE, PT IS RESTING IN BED, A/OX4, AMBULATORY, IV IS ON THE RT HAND, PATENT, INTACT, FLUSHING WELL, PT IS ON RA, NO S/S OF RESPIRATORY DISTRESS OR DISCOMFORT NOTED, DISCUSSED PLAN OF CARE WITH PT, PT VERBALIZED UNDERSTANDING, SAFETY/FALL PRECAUTIONS ARE IN PLACE, CALL LIGHT WITHIN REACH, WILL CONTINUE TO MONITOR.
[2016-12-11 08:00] VITALS: BP 129/86
[2016-12-11 08:20] LABS: T4 (THYROXINE) 8.1 ug/dL (4.5-12.0)
[2016-12-11] MEDS: metFORMIN 850 MG TAB PO SCH ×3 (08:20→16:44)
[2016-12-11] MEDS: cloNIDine 0.1 MG TAB PO SCH ×2 (08:20→20:35)
[2016-12-11] MEDS: NIFEdipine 60 MG TABER PO SCH (08:21)
[2016-12-11] MEDS: TAMSULOSIN 0.4 MG CAP PO SCH (08:21)
[2016-12-11] MEDS: FUROSEMIDE 40 MG TAB PO SCH (08:21)
[2016-12-11] MEDS: ASPIRIN 81 MG TAB.CHEW PO SCH (08:21)
[2016-12-11] MEDS: LISINOPRIL 20 MG TAB PO SCH (08:22)
[2016-12-11] MEDS: METOPROLOL SUCCINATE 50 MG TABER PO SCH (08:22)
[2016-12-11] MEDS: NACL 0.9% 1,000 ML IV SCH (08:48)
[2016-12-11] MEDS ORDERED: PANTOPRAZOLE 40 MG TABEC PO SCH (09:00)
--- NOTE | 2016-12-11 09:22 | NUR ---
PATIENT HAS BEEN SCREENED AND CATEGORIZED MODERATE RISK. PATIENT WILL BE SEEN WITHIN 3-5 DAYS OF ADMISSION. 12/13/16 TO 12/15/[address]
[2016-12-11] MEDS ORDERED: MAG SULF 2000 MG/WATER PREMIX 50 ML IV ONE (10:25)
[2016-12-11 11:31] LABS: BASOPHILS # (AUTO) 0.1 K/uL (0.00-0.22); BASOPHILS % (AUTO) 1.1 % (0.0-2.0); EOSINOPHILS # (AUTO) 0.2 K/uL (0-0.4); EOSINOPHILS % (AUTO) 2.2 % (0.0-4.0); HEMATOCRIT 37.9 % (36-48); HEMOGLOBIN 12.3 g/dL (12.0-16.0); LYMPHOCYTES # (AUTO) 1.5 K/uL (2.5-16.5); LYMPHOCYTES % (AUTO) 19.9 % (20.5-51.1); MEAN CORPUSCULAR HEMOGLOBIN 29 pg (27-31); MEAN CORPUSCULAR HGB CONC 32 g/dL (33-37); MEAN CORPUSCULAR VOLUME 88 fL (80-94); MONOCYTES # (AUTO) 0.5 K/uL (0.8-1.0); MONOCYTES % (AUTO) 6.2 % (1.7-9.3); NEUTROPHILS # (AUTO) 5.2 K/uL (1.8-7.7); NEUTROPHILS % (AUTO) 70.6 % (42.2-75.2); PLATELET COUNT (AUTO) 278 K/uL (140-450); RED CELL DISTRIBUTION WIDTH 13.7 % (11.6-13.7); WHITE BLOOD COUNT (AUTO) 7.5 K/uL (4.8-10.8)
[2016-12-11 12:00] VITALS: BP 126/84
[2016-12-11 16:00] VITALS: BP 113/78
--- NOTE | 2016-12-11 16:30 | NUR ---
PATIENT REFUSED BLOOD DRAW AT THIS TIME. I EXPLAINED TO THE PATIENT WHY THE DOCTOR HAD ORDERED THE BLOOD DRAW, PT STILL REFUSED BLOOD DRAW AND STATED SHE WAS TIRED OF GETTING POKED ALL DAY. I WENT AHEAD AND LET DR. WAGNER KNOW THAT THE PATIENT HAD REFUSED THE BLOOD DRAW
[2016-12-11] MEDS: LORazepam 1 MG TAB PO PRN (16:35)
--- NOTE | 2016-12-11 18:48 | NUR ---
IVF FLUIDS DISCONTINUED AT THIS TIME.
--- NOTE | 2016-12-11 19:22 | NUR ---
ENDORSED PT TO PRODUCT SUPPORT SPECIALIST NURSE FOR CONTINUITY OF CARE, PT STABLE AT THIS TIME.
--- NOTE | 2016-12-11 19:23 | NUR ---
RECEIVED PT AWAKE ON BED, AAOX4, JUST MEDICATED FOR CHEST PAIN BY AM NURSE, VITAL SIGNS TAKEN, BP STABLE, ST ON TELE, NO SOB NOTED, PLAN OF CARE DISCUSSED, SAFETY MEASURES IN PLACE, CALL LIGHT WITHIN REACH.
[2016-12-11 20:00] VITALS: BP 121/83
[2016-12-11] MEDS: QUEtiapine FUMARATE 100 MG TAB PO SCH (20:36)
[2016-12-11] MEDS: ATORVASTATIN 20 MG TAB PO SCH (20:36)
--- NOTE | 2016-12-11 21:00 | NUR ---
BLOOD SUGAR CHECKED WITH 263 RESULT, COVERAGE GIVEN AND SNACK PROVIDED, DUE MEDS TAKEN, REFUSED DUE SEROQUEL, RISK AND BENEFITS EXPLAINED BUT STILL REFUSED, ALL NEEDS ATTENDED.
--- NOTE | 2016-12-11 22:20 | NUR ---
AMBULATED TO BR WITH STEADY GAIT, VOIDED FREELY, MONITORED CLOSELY.
[2016-12-12] VITALS: BP 122/85
[2016-12-12] MEDS: HYDROmorphone 1 MG/ML AMP IVP PRN ×3 (01:26→20:29)
--- NOTE | 2016-12-12 01:30 | NUR ---
PT COMPLAINING OF PAIN, MEDICATED PRN WITH DILAUDID IVP, MONITORED CLOSELY.
[2016-12-12 04:00] VITALS: BP 123/88
[2016-12-12] MEDS: LORazepam 1 MG TAB PO PRN (04:01)
--- NOTE | 2016-12-12 04:05 | NUR ---
PT SLEEPING, EASILY AROUSABLE, VITAL SIGNS STABLE, COMPLAINING OF PAIN, TORADOL AND DILAUDID NOT DUE YET, MEDICATED WITH ATIVAN AND TYLENOL PRN, MONITORED CLOSELY.
[2016-12-12] MEDS: KETOROLAC 15 MG/ML VIAL IVP PRN ×4 (05:38→21:49)
--- NOTE | 2016-12-12 06:00 | NUR ---
BLOOD SUGAR CHECKED WITH 325 RESULT, WILL GIVE RISS COVERAGE, ASKING FOR HER NEXT DILAUDID, MADE AWARE OF NEXT DUE TIME, MONITORED CLOSELY.
[2016-12-12] MEDS: glipiZIDE 10 MG TAB PO SCH ×2 (06:25→16:17)
[2016-12-12] MEDS: INSULIN LISPRO SLIDING SCALE 100 UNITS/ML VIAL SUBQ PRN ×3 (06:29→20:46)
[2016-12-12] MEDS: BLOOD GLUCOSE MONITORING 1 DEV DEV FS SCH ×4 (06:36→21:32)
[2016-12-12 06:37] LABS: HEMATOCRIT 33.8 % (36-48); MEAN CORPUSCULAR HEMOGLOBIN 29 pg (27-31); MEAN CORPUSCULAR HGB CONC 33 g/dL (33-37); MEAN CORPUSCULAR VOLUME 89 fL (80-94); PLATELET COUNT (AUTO) 245 K/uL (140-450); RED BLOOD CELL COUNT(AUTO) 3.82 MIL/uL (4.20-5.40); RED CELL DISTRIBUTION WIDTH 13.5 % (11.6-13.7); WHITE BLOOD COUNT (AUTO) 8.2 K/uL (4.8-10.8)
[2016-12-12 06:54] LABS: ANION GAP 7.8 (8-16); CARBON DIOXIDE 31.3 mmol/L (21-32); CREATININE 0.7 mg/dL (0.6-1.3); POTASSIUM 4.1 mmol/L (3.5-5.1)
[2016-12-12 06:58] LABS: MAGNESIUM 1.4 mg/dL (1.8-2.4); PHOSPHORUS 4.6 mg/dL (2.5-4.9)
[2016-12-12] MEDS: ALBUTEROL SULFATE/IPRATROPIU 3 ML SOL IH SCH ×3 (07:19→19:35)
--- NOTE | 2016-12-12 07:22 | NUR ---
PT PRESENTLY GETTING BREATHING TREATMENT FROM RT, PT COMPLAINING OF PAIN AND NAUSEA, MEDICATED PRN WITH DILAUDID AND ZOFRAN, NO SIGNS OF DISTRESS, REPORT GIVEN TO KOFFI MOODY FOR CONTINUITY OF CARE.
[2016-12-12] MEDS: ONDANSETRON 4 MG/2 ML VIAL IM/IVP PRN ×2 (07:24→18:08)
--- NOTE | 2016-12-12 07:25 | NUR ---
RECEIVED REPORT FROM WELLNESS GUIDE NURSE, PT IS SLEEPING IN BED BUT EASILY AWAKEN, A/OX4, AMBULATORY, IV IS ON THE RT HAND, PATENT, INTACT, FLUSHING WELL, PT IS ON RA, NO S/S OF RESPIRATORY DISTRESS OR DISCOMFORT NOTED, DISCUSSED PLAN OF CARE WITH PT, PT VERBALIZED UNDERSTANDING, SAFETY/FALL PRECAUTIONS ARE IN PLACE, CALL LIGHT WITHIN REACH, WILL CONTINUE TO MONITOR.
[2016-12-12 07:55] LABS: LYMPHOCYTES % (MANUAL) 30 % (20-46); MONOCYTES % (MANUAL) 6 % (5-12)
[2016-12-12 08:00] VITALS: BP 109/75
[2016-12-12] MEDS: metFORMIN 850 MG TAB PO SCH ×3 (08:00→16:17)
[2016-12-12] MEDS ORDERED: MAG SULF 2000 MG/WATER PREMIX 50 ML IV ONE (08:45)
[2016-12-12] MEDS: FUROSEMIDE 40 MG TAB PO SCH (09:00)
[2016-12-12] MEDS: cloNIDine 0.1 MG TAB PO SCH ×2 (09:00→20:31)
[2016-12-12] MEDS: NIFEdipine 60 MG TABER PO SCH (09:00)
[2016-12-12] MEDS: LISINOPRIL 20 MG TAB PO SCH (09:00)
[2016-12-12] MEDS: TAMSULOSIN 0.4 MG CAP PO SCH (09:03)
[2016-12-12] MEDS: METOPROLOL SUCCINATE 50 MG TABER PO SCH (09:04)
[2016-12-12] MEDS: ASPIRIN 81 MG TAB.CHEW PO SCH (09:06)
[2016-12-12 12:00] VITALS: BP 138/91
[2016-12-12] MEDS: LORazepam 2 MG/ML VIAL IVP PRN (13:24)
[2016-12-12] MEDS ORDERED: busPIRone 5 MG TAB PO SCH (13:35)
--- NOTE | 2016-12-12 14:30 | NUR ---
DILAUDID 0.5MG GIVEN IVP AT THIS TIME FOR PAIN 09/30, PT TOLERATED WELL, CALL LIGHT WITHIN REACH, WILL CONTINUE TO MONITOR.
--- NOTE | 2016-12-12 15:59 | NUR ---
Social Service Note: Room and Board Placement follow up: I called [facility] room [facility] board , address [address] [place] [address]. Per Nat, she is able to accept patient, just needs payee's contact information, I provided her with Gaye's contact information . She stated she does not need to come to hospital and evaluate patient. She reported she cannot provide transportation for patient from hospital to room and board today. I met with patient and explained to her she has been accepted at [facility] room and board, patient in agreement with going there upon discharge.
[2016-12-12 16:00] VITALS: BP 143/87
--- NOTE | 2016-12-12 19:10 | NUR ---
ENDORSED PT TO LONGITUDINAL FLOAT OPERATOR NURSE FOR CONTINUITY OF CARE, PT STABLE AT THIS TIME.
--- NOTE | 2016-12-12 19:11 | NUR ---
RECEIVED REPORT FROM DAY NURSE, PT IN STABLE CONDITION. NO S/S OF DISTRESS NOTED. PT IS ON RA. IV TO RT HAND 24 G SL, PATENT AND INTACT. SKIN IS INTACT. RESPIRATIONS ARE EVEN AND UNLABORED, BOWEL SOUNDS PRESENT. INITIAL ASSESSMENT COMPLETED. PLAN OF CARE DISCUSSED WITH PT, VERBALIZED UNDERSTANDING. ALL SAFETY PRECAUTIONS MET, CALL LIGHT WITHIN REACH, WILL CONTINUE TO MONITOR.
[2016-12-12 20:00] VITALS: BP 132/76
[2016-12-12] MEDS: QUEtiapine FUMARATE 100 MG TAB PO SCH (20:30)
[2016-12-12] MEDS: ATORVASTATIN 20 MG TAB PO SCH (20:30)
--- NOTE | 2016-12-12 21:30 | NUR ---
PTS IV FELL OUT, NEW IV INSERTED BY EZEQUIEL CHARGE NURSE. R FA [address] PATENT AND INTACT
[2016-12-13] VITALS: BP 123/88
--- NOTE | 2016-12-13 00:29 | NUR ---
PAGED DR. CASTANO BECAUSE TELE MONITOR SHOWED V-TACH FOR THREE SECONDS
--- NOTE | 2016-12-13 00:30 | NUR ---
DR. CASTANO PAGED BACK, MADE AWARE OF V-TACH FOR THREE SECONDS. PT IS ASYMPTOMATIC, PT RESTING IN BED SLEEPING. B/P 123/88. NO S/S OF DISTRESS
--- NOTE | 2016-12-13 02:20 | NUR ---
PT RESTING COMFORTABLY IN BED. NO S/S OF DISTRESS. ALL SAFETY PRECAUTIONS MET, CALL LIGHT WITHIN REACH, WILL CONTINUE TO MONITOR
[2016-12-13 04:00] VITALS: BP 147/93
[2016-12-13] MEDS: KETOROLAC 15 MG/ML VIAL IVP PRN ×2 (04:02→10:28)
[2016-12-13] MEDS: glipiZIDE 10 MG TAB PO SCH (06:44)
[2016-12-13] MEDS: BLOOD GLUCOSE MONITORING 1 DEV DEV FS SCH ×2 (06:48→11:41)
[2016-12-13] MEDS: INSULIN LISPRO SLIDING SCALE 100 UNITS/ML VIAL SUBQ PRN (06:52)
[2016-12-13 07:02] LABS: BASOPHILS # (AUTO) 0.2 K/uL (0.00-0.22); BASOPHILS % (AUTO) 2.5 % (0.0-2.0); EOSINOPHILS # (AUTO) 0.3 K/uL (0-0.4); HEMATOCRIT 34.4 % (36-48); HEMOGLOBIN 11.2 g/dL (12.0-16.0); LYMPHOCYTES # (AUTO) 1.8 K/uL (2.5-16.5); LYMPHOCYTES % (AUTO) 25.3 % (20.5-51.1); MEAN CORPUSCULAR HEMOGLOBIN 29 pg (27-31); MEAN CORPUSCULAR HGB CONC 33 g/dL (33-37); MEAN CORPUSCULAR VOLUME 88 fL (80-94); MONOCYTES # (AUTO) 0.4 K/uL (0.8-1.0); NEUTROPHILS # (AUTO) 4.3 K/uL (1.8-7.7); NEUTROPHILS % (AUTO) 62.2 % (42.2-75.2); PLATELET COUNT (AUTO) 239 K/uL (140-450); RED BLOOD CELL COUNT(AUTO) 3.92 MIL/uL (4.20-5.40); RED CELL DISTRIBUTION WIDTH 13.7 % (11.6-13.7)
[2016-12-13] MEDS: ALBUTEROL SULFATE/IPRATROPIU 3 ML SOL IH SCH ×2 (07:07→11:42)
--- NOTE | 2016-12-13 07:20 | NUR ---
REPORT GIVEN TO DAY NURSE AT BEDSIDE, PT IN STABLE CONDITION NO S/S OF DISTRESS NOTED
--- NOTE | 2016-12-13 07:20 | NUR ---
RECEIVED REPORT FROM NIGHT NURSE, PT IS AOOX4, ON ROOM AIR, IV TO RIGHT AC 24G SALINE LOCK PATIENT REFUSED IVF, SKIN INTACT. INITIAL ASSESSMENT COMPLETED, REVIEWED PLAN OF CARE WITH PT, PT VERBALIZED UNDERSTANDING. ALL SAFETY PRECAUTIONS MET. CALL LIGHT WITHIN REACH. WILL CONTINUE TO MONITOR.
[2016-12-13 07:47] LABS: ANION GAP 7.3 (8-16); CARBON DIOXIDE 29.9 mmol/L (21-32); CREATININE 0.6 mg/dL (0.6-1.3); POTASSIUM 4.2 mmol/L (3.5-5.1)
[2016-12-13 07:48] LABS: MAGNESIUM 1.3 mg/dL (1.8-2.4); PHOSPHORUS 4.1 mg/dL (2.5-4.9)
[2016-12-13 08:00] VITALS: BP 137/98
[2016-12-13] MEDS: metFORMIN 850 MG TAB PO SCH ×2 (08:09→11:09)
[2016-12-13] MEDS: LISINOPRIL 20 MG TAB PO SCH (08:09)
[2016-12-13] MEDS: FUROSEMIDE 40 MG TAB PO SCH (08:10)
[2016-12-13] MEDS: NIFEdipine 60 MG TABER PO SCH (08:10)
[2016-12-13] MEDS: ASPIRIN 81 MG TAB.CHEW PO SCH (08:10)
[2016-12-13] MEDS: METOPROLOL SUCCINATE 50 MG TABER PO SCH (08:10)
[2016-12-13] MEDS: TAMSULOSIN 0.4 MG CAP PO SCH (08:11)
[2016-12-13] MEDS: cloNIDine 0.1 MG TAB PO SCH ×2 (08:12→09:42)
--- NOTE | 2016-12-13 08:12 | NUR ---
DUE MEDICATIONS GIVEN BY CHARGE NURSE.
[2016-12-13] MEDS: HYDROmorphone 1 MG/ML AMP IVP PRN (08:14)
[2016-12-13] MEDS: ONDANSETRON 4 MG/2 ML VIAL IM/IVP PRN (08:27)
[2016-12-13] MEDS ORDERED: busPIRone 5 MG TAB PO SCH (09:00)
[2016-12-13] MEDS: LORazepam 2 MG/ML VIAL IVP PRN (09:23)
--- NOTE | 2016-12-13 09:59 | NUR ---
CHECKED IN ON PT, PT RESTING IN BED ALL NEEDS MET. WILL CONTINUE TO MONITOR.
[2016-12-13] MEDS ORDERED: MAG SULF 2000 MG/WATER PREMIX 100 ML IV SCH (11:00)
[2016-12-13] MEDS ORDERED: MAGNESIUM OXIDE 400 MG TAB PO SCH (11:00)
--- NOTE | 2016-12-13 11:14 | NUR ---
DUE MEDICATIONS GIVEN, PT CURRENTLY IN ROOM ARRANGING CLOTHES. CALL LIGHT WITHIN REACH. WILL CONTINUE TO MONITOR.
--- NOTE | 2016-12-13 11:42 | NUR ---
PT STATES SHE DOES NOT WANT BREATHING TX BEFORE BEING D/C. PT NOT SOB AND NOT IN RESPIRATORY DISTRESS. PT ON ROOM AIR WITH NO COMPLAINTS AT THIS TIME.
[2016-12-13] MEDS ORDERED: ASPI81CT89 PO (11:54)
[2016-12-13] MEDS ORDERED: ALBU0.0912 IH (11:54)
[2016-12-13] MEDS ORDERED: LORA-476 PO (11:54)
[2016-12-13] MEDS ORDERED: QUET100T PO (11:54)
[2016-12-13] MEDS ORDERED: RANI150C PO (11:54)
[2016-12-13] MEDS ORDERED: GLIP10TA3 PO (11:54)
[2016-12-13] MEDS ORDERED: INSU100S22 SUBQ (11:54)
[2016-12-13] MEDS ORDERED: ACET-8386 PO (11:54)
[2016-12-13] MEDS ORDERED: METF850T4 PO (11:54)
[2016-12-13] MEDS ORDERED: FLUT1DSK2 IH (11:54)
[2016-12-13] MEDS ORDERED: CLON0.1T42 PO (11:54)
--- NOTE | 2016-12-13 12:00 | NUR ---
IV WAS REMOVED. TIP INTACT
[2016-12-13 12:03] VITALS: BP 149/93
--- NOTE | 2016-12-13 12:21 | NUR ---
CM NOTE SPOKE WITH MARIN OF [facility] PH# [phone] WHO SAID THAT THAT THIS PATIENT IS DELEGATED TO THEM AND THAT REVIEWS AND DISCHARGE NEEDS SHOULD ONLY BE SENT TO [facility] AND NOT TO [facility]. PER MARIN, THE MANAGER FIXED INCOME ASSIGNED IS MASSIEL # [phone] EXT [phone]. FAXED INITIAL REVIEW TO [facility] [phone] PH# [phone] CRICKET RANKIN EXT [phone]. SPOKE WITH SERVANDO OF [facility] PH# [phone] WHO SAID THAT SHE HAS SPOKEN TO THE [facility] PH# [phone] AND THEY ARE ABLE TO ACCEPT THE PATIENT. SPOKE WITH PATIENT BEDSIDE TO INFORM HER THAT SHE HAS BEEN ACCEPTED AND CAN GO TO [facility] WHEN DISCHARGED. PATIENT SAID THAT SHE DOES NOT WANT TO GO THERE BECAUSE IT'S IN [place] AND PER PATIENT "[place] IS [place]OO [place] AND NOT SAFE". I ASKED HER WHERE SHE WILL GO WHEN DISCHARGED IF SHE DOES NOT WANT TO GO TO THE ROOM AND BOARD. PER PATIENT, SHE WILL GO BACK TO THE STREETS. PATIENT HAS RECEIVED HOMELESS RESOURCES FROM [facility]. Addendum: 12/13/16 at 1237 by Kaya Livingston SPOKE WITH SERVANDO Lima OF [facility] PH# [phone] TO INFORM HER THAT PATIENT HAS DECIDED NOT TO GO TO ROOM AND BOARD.
--- NOTE | 2016-12-13 12:33 | NUR ---
PT WALKED OUT OF UNIT, PT REFUSED TO SIGNED ANY DISCHARGE PAPERWORK, EDUCATED PT ON THE NEED OF DISCHARGE EDUCATION PT CONTINUE TO WALK AWAY AND STATES SHE IS LEAVING AND NOT SIGNING ANYTHING. AWARE. CHARGE NURSE AWARE.
[2016-12-13] MEDS ORDERED: INSU100I7 SQ (12:35)
--- NOTE | 2016-12-13 12:40 | NUR ---
PT CAME BACK INTO UNIT, PT SIGNED ALL DISCHARGE PAPERWORK, ALL PERSONAL BELONGINGS WITH PT.
--- NOTE | 2016-12-13 13:00 | NUR ---
PT LEFT UNIT WITH ELECTRICAL ASSEMBLER.
[2016-12-13] MEDS ORDERED: ATOR20TA40 PO (13:03)
[2016-12-14] MEDS ORDERED: PANTOPRAZOLE 40 MG TABEC PO SCH (09:00)
[2016-12-14] MEDS ORDERED: MAGNESIUM OXIDE 400 MG TAB PO SCH ×2 (09:00)
== END 2016-12-13 13:00 | DRG 243 ==
LOC: MED 08:16 → INTOOBSV 10:29 → UNDOADMOB 10:29 → MTU 10:29 → OBSVTOIN 10:29 → MTU 12-11 10:06 → OBSVTOIN 12-11 10:06
PROVIDERS: ADMIT Family Medicine; ATTEND Family Medicine
DX: K21.9 Gastro-esophageal reflux disease without esophagitis (principal); N17.0 Acute kidney failure with tubular necrosis; E44.0 Moderate protein-calorie malnutrition; D68.59 Other primary thrombophilia; E11.51 Type 2 diabetes mellitus with diabetic peripheral angiopathy without gangrene; I11.0 Hypertensive heart disease with heart failure; I50.40 Unspecified combined systolic (congestive) and diastolic (congestive) heart failure; G90.9 Disorder of the autonomic nervous system, unspecified; E11.65 Type 2 diabetes mellitus with hyperglycemia; E83.42 Hypomagnesemia; M94.0 Chondrocostal junction syndrome [Tietze]; F20.0 Paranoid schizophrenia; F41.9 Anxiety disorder, unspecified; F31.9 Bipolar disorder, unspecified; F17.210 Nicotine dependence, cigarettes, uncomplicated; J44.9 Chronic obstructive pulmonary disease, unspecified; I25.10 Atherosclerotic heart disease of native coronary artery without angina pectoris; G89.29 Other chronic pain; E78.1 Pure hyperglyceridemia; N20.0 Calculus of kidney; E66.9 Obesity, unspecified; Z88.6 Allergy status to analgesic agent; Z88.8 Allergy status to other drugs, medicaments and biological substances; Z68.37 Body mass index [BMI] 37.0-37.9, adult; Z79.82 Long term (current) use of aspirin; Z79.84 Long term (current) use of oral hypoglycemic drugs; Z79.899 Other long term (current) drug therapy; Z59.0 Homelessness; Z87.442 Personal history of urinary calculi; Z87.11 Personal history of peptic ulcer disease
CPT/HCPCS: 36415; 70450; 71010; 80048; 80053; 80305; 81001; 82150; 82948; 83036; 83690; 83735; 83880; 84100; 84436; 84439; 84443; 84479; 84484; 85025; 85379; 85610; 85730; 87081; 93005; 93880; 93925; 93970; 94640; 96372; 99285; J1170; J1644; J1815; J1885; J2060; J2405; J3475; J7030; J7620; Q0092

== ENCOUNTER 2017-02-21 17:13 | Emergency (ER) | payer MEDICAID ==
[~2017-02-21] VITALS: Ht 157.5 cm; Wt 93.6 kg
[~2017-02-21 17:13] MED LIST changes: +ATOR20TA40 PO; +INSU100I7 SQ; -NITR100C7 PO; -RANI-287 PO; +RANI150C PO
[2017-02-21 17:40] VITALS: BP 171/97
[2017-02-21 19:06] LABS: BASOPHILS # (AUTO) 0.1 K/uL (0.00-0.22); BASOPHILS % (AUTO) 1.4 % (0.0-2.0); EOSINOPHILS % (AUTO) 0.5 % (0.0-4.0); HEMATOCRIT 42.9 % (36-48); HEMOGLOBIN 13.9 g/dL (12.0-16.0); LYMPHOCYTES # (AUTO) 0.5 K/uL (2.5-16.5); LYMPHOCYTES % (AUTO) 7.6 % (20.5-51.1); MEAN CORPUSCULAR HEMOGLOBIN 27 pg (27-31); MEAN CORPUSCULAR HGB CONC 32 g/dL (33-37); MEAN CORPUSCULAR VOLUME 84 fL (80-94); MONOCYTES # (AUTO) 0.5 K/uL (0.8-1.0); MONOCYTES % (AUTO) 7.3 % (1.7-9.3); NEUTROPHILS # (AUTO) 5.9 K/uL (1.8-7.7); NEUTROPHILS % (AUTO) 83.2 % (42.2-75.2); PLATELET COUNT (AUTO) 263 K/uL (140-450); RED BLOOD CELL COUNT(AUTO) 5.08 MIL/uL (4.20-5.40); RED CELL DISTRIBUTION WIDTH 12.8 % (11.6-13.7)
[2017-02-21 19:22] LABS: PROTHROMBIN TIME 9.7 secs (10.8-13.4)
[2017-02-21 19:45] LABS: ANION GAP 15.4 (8-16); CARBON DIOXIDE 23.9 mmol/L (21-32); CREATININE 0.6 mg/dL (0.6-1.3); POTASSIUM 3.3 mmol/L (3.5-5.1)
[2017-02-21 19:47] LABS: ALBUMIN 3.2 g/dL (3.4-5.0); TOTAL BILIRUBIN 0.5 mg/dL (0.0-1.0)
[2017-02-22 01:30] VITALS: BP 142/89
== END 2017-02-22 01:29 | disposition home or self-care (01) ==
LOC: MED 17:13
DX: J06.9 Acute upper respiratory infection, unspecified (principal); J44.9 Chronic obstructive pulmonary disease, unspecified; I11.0 Hypertensive heart disease with heart failure; I50.9 Heart failure, unspecified; E11.9 Type 2 diabetes mellitus without complications
CPT/HCPCS: 36415; 71046; 80053; 81002; 82948; 83690; 83880; 84484; 85025; 85610; 85730; 93005; 99285

== ENCOUNTER 2017-05-11 09:36 | Emergency (ER) | payer MEDICAID ==
[~2017-05-11] VITALS: Ht 157.5 cm; Wt 99.1 kg
[2017-05-11 09:42] VITALS: BP 121/74
--- NOTE | 2017-05-11 09:48 | NUR ---
PT AMBULATED TO BED 4
--- NOTE | 2017-05-11 09:52 | NUR ---
Patient being evaluated by DR PATTON at bedside.
[2017-05-11] MEDS ORDERED: INSULIN REGULAR, HUMAN 100 UNIT/ML VIAL SUBQ ONE (10:00)
--- NOTE | 2017-05-11 10:02 | NUR ---
57F BIB FAMILY C/O COUGH X 3 WEEKS, AND LOWER BACK PAIN X YESTERDAY MORNING. PT STATES NO TRAUMA OR INJURY TO SITE THAT SHE RECALLS. MED HX DM, HTN, CONGESTIVE HEART FAILURE, [employer] HAVING THE FLU ABOUT 2 WEEKS AGO, WHEN CONGESTION IN CHEST/UPPER BACK GOT "VERY BAD". PT STATES SHE FEELS BREATHING IS DIFFICULT AND THAT SHE JUST "DOESN'T FEEL GOOD". HER RESPIRATORY RATE IS EVEN, WITH SYMMETRICAL RISE AND FALL AT A RATE OF 20 PER MINUTE, AND UNLABORED. A&O X4. GCS 15. SKIN INTACT. CMS INTACT. NO S/S OF ACUTE RESPIRATORY DISTRESS. ER MD PATTON NOTIFIED. PT NEEDS MET AT THIS TIME. SAFETY PRECAUTIONS IN PLACE. WILL CONTINUE TO MONITOR.
--- NOTE | 2017-05-11 10:06 | NUR ---
XRAY AT BEDSIDE FOR CHEST SCAN
[2017-05-11] MEDS ORDERED: cefTRIAXone 1,000 MG in LIDOCAINE MPF 1% - **ER/OR** 2.1 ML IM ONE (10:35)
[2017-05-11] MEDS ORDERED: KETOROLAC 60 MG/2 ML VIAL IM ONE (10:55)
--- NOTE | 2017-05-11 11:04 | NUR ---
TORDOL GIVEN TO PT PER MD ORDER. 2ML ORDERED. PT REFUSED FOR IM TO BE PLACED IN GLUTEUS DEANNA. PT EDUCATED ON PAIN ASSOCIATED WITH PLACING 2ML MED INTO DELTOID. PT INSISTED ON PLACEMENT INTO DELTOID. PT TOLERATED WELL. WILL CONTINUE TO MONITOR.
--- NOTE | 2017-05-11 11:26 | NUR ---
PT IS REQUESTING TO GO HOME. STATES SHE STILL HAS PAIN 05/31. ER MD NOTIFIED. WILL CONTINUE TO MONITOR.
[2017-05-11 11:46] VITALS: BP 116/85
--- NOTE | 2017-05-11 11:46 | NUR ---
Patient discharged with v/s stable BY DR PATTON. Written and verbal after care instructions given and explained. Patient alert, oriented and verbalized understanding of instructions. Ambulatory with steady gait. All questions addressed prior to discharge. ID band removed. Patient advised to follow up with PMD. Rx of NAPROSN, PROMETHAZINE & AUGMENTIN given. Patient educated on indication of medication including possible reaction and side effects. Opportunity to ask questions provided and answered.
== END 2017-05-11 11:46 | disposition home or self-care (01) ==
LOC: MED 09:36
DX: J20.9 Acute bronchitis, unspecified (principal); E11.9 Type 2 diabetes mellitus without complications; I50.9 Heart failure, unspecified; J44.9 Chronic obstructive pulmonary disease, unspecified; I10 Essential (primary) hypertension; Z79.899 Other long term (current) drug therapy; Z79.82 Long term (current) use of aspirin; Z79.84 Long term (current) use of oral hypoglycemic drugs; Z88.5 Allergy status to narcotic agent; Z88.8 Allergy status to other drugs, medicaments and biological substances
CPT/HCPCS: 71045; 81002; 82948; 96372; 99284; J0696; J1815; J1885; J2001; Q0092

== ENCOUNTER 2017-09-09 14:26 | Emergency (ER) | payer MEDICAID ==
[~2017-09-09] VITALS: Ht 157.5 cm; Wt 94.3 kg
[2017-09-09 14:36] VITALS: BP 131/70
--- NOTE | 2017-09-09 14:54 | NUR ---
PT AMBULATES TO BED 8 WITH C/O COUGH, BODY ACHES, AND BILAT LEG SWELLING FOR 1 WEEK. ALSO REPORTS SOB X 1 DAY. DENIES FEVER. HX: HTN, DM, CHF. RX; LASIX, LOSARTAN, METFORMIN
--- NOTE | 2017-09-09 15:26 | NUR ---
AAO BEING EVALUATED BY DR VERDUGO AT BEDSIDE
[2017-09-09 16:20] LABS: BASOPHILS # (AUTO) 0.1 K/uL (0.00-0.22); BASOPHILS % (AUTO) 1.3 % (0.0-2.0); EOSINOPHILS # (AUTO) 0.2 K/uL (0-0.4); EOSINOPHILS % (AUTO) 2.7 % (0.0-4.0); HEMATOCRIT 38.6 % (36-48); HEMOGLOBIN 12.3 g/dL (12.0-16.0); LYMPHOCYTES # (AUTO) 1.9 K/uL (2.5-16.5); LYMPHOCYTES % (AUTO) 21.2 % (20.5-51.1); MEAN CORPUSCULAR HEMOGLOBIN 27 pg (27-31); MEAN CORPUSCULAR HGB CONC 32 g/dL (33-37); MONOCYTES # (AUTO) 0.5 K/uL (0.8-1.0); NEUTROPHILS # (AUTO) 6.2 K/uL (1.8-7.7); NEUTROPHILS % (AUTO) 68.8 % (42.2-75.2); PLATELET COUNT (AUTO) 289 K/uL (140-450); RED BLOOD CELL COUNT(AUTO) 4.49 MIL/uL (4.20-5.40); RED CELL DISTRIBUTION WIDTH 14.3 % (11.6-13.7)
[2017-09-09 16:41] LABS: ANION GAP 11.5 (8-16); CARBON DIOXIDE 25.7 mmol/L (21-32); CREATININE 0.9 mg/dL (0.6-1.3); POTASSIUM 4.2 mmol/L (3.5-5.1)
[2017-09-09 16:43] LABS: MAGNESIUM 1.5 mg/dL (1.8-2.4); PHOSPHORUS 5.3 mg/dL (2.5-4.9)
[2017-09-09 16:47] LABS: ALBUMIN 3.5 g/dL (3.4-5.0); TOTAL BILIRUBIN 0.4 mg/dL (0.0-1.0)
[2017-09-09] MEDS ORDERED: KETOROLAC 30 MG/ML VIAL IM ONE (17:25)
[2017-09-09] MEDS ORDERED: ONDANSETRON 4 MG ODT PO ONE (17:25)
[2017-09-09 17:45] LABS: BILIRUBIN,URINE NEGATIVE (NEGATIVE); BLOOD, URINE TRACE-I (NEGATIVE); COLOR,URINE YELLOW (YELLOW); LEUKOCYTE ESTERASE ,URINE 1+ (NEGATIVE); NITRITE, URINE NEGATIVE (NEGATIVE); UGLUCOSE NEGATIVE (NEGATIVE)
[2017-09-09 17:50] LABS: APPEARANCE,URINE HAZY (CLEAR)
[2017-09-09 17:54] LABS: BARBITURATE, URINE NEG. ng/ml (NEG <=200); BENZODIAZEPINE, URINE NEG. ng/mL (NEG <=200); CANNABINOID, URINE NEG. ng/mL (NEG <=50); COCAINE, URINE NEG. ng/mL (NEG <=300); OPIATE, URINE NEG. ng/mL (NEG <=2000); PHENCYCLIDINE SCREEN,URINE NEG. ng/mL (NEG <=25); RBC,URINE NONE SEEN /HPF (0-5); WBC,URINE 6-15 (FEW) /HPF (0-5)
--- NOTE | 2017-09-09 19:17 | NUR ---
PT GIVEN DISCHARGE INSTRUCTIONS, REFUSED TO SIGN, WANTS MORE PAIN MEDICATION AND DIFFERENT PRESCRIPTION OTHER THAN RUBITUSIN, DR VERDUGO NOTIFIED, PER DR VERDUGO PT WILL RECIEVED PRESCRIBED ROITUSSIN dm 10MG/5ML PRESCRIBED, ADVISED TO FOLLOWUP WITH PRIMARY MD, PER PT WILL GO TO THE LOBBY AND SIGN IN AGAIN, SENIOR PROGRAM MANAGER TAMMY NOTIFIED.
[2017-09-09 19:25] VITALS: BP 119/77
== END 2017-09-09 19:07 | disposition home or self-care (01) ==
LOC: MED 14:26
DX: F15.90 Other stimulant use, unspecified, uncomplicated (principal); R53.1 Weakness; R05 Cough; J44.9 Chronic obstructive pulmonary disease, unspecified; I11.0 Hypertensive heart disease with heart failure; I50.9 Heart failure, unspecified; E11.9 Type 2 diabetes mellitus without complications; Z88.5 Allergy status to narcotic agent; Z88.1 Allergy status to other antibiotic agents
CPT/HCPCS: 36415; 71045; 80053; 80305; 81001; 81025; 83690; 83735; 83880; 84100; 84484; 85025; 87086; 93005; 96372; 99285; J1885; S0119

== ENCOUNTER 2018-09-05 11:27 | Emergency (ER) | payer MEDICAID ==
[~2018-09-05] VITALS: Ht 157.5 cm; Wt 106.1 kg
[~2018-09-05 11:27] MED LIST changes: +ASPI-1718 PO; -ASPI81CT89 PO; +METF-350 PO; -METF850T4 PO
[2018-09-05 11:35] VITALS: BP 139/88
--- NOTE | 2018-09-05 11:45 | NUR ---
BIB SELF. AAO X4 C/O SOB, CHEST PAIN, SORE THROAT, DYSURIA, COUGH, DIZZINESS X 2 DAYS. WHEEZING NOTED TO ANTERIOR KIRA UPPER LUNGS UPON EXPIRATION. PERRLA, BRISK 3 MM, FULL CLEAR SPEECH. NO FACIAL ASSYMETRY, KIRA EQUAL STRENGTH TO UPPER AND LOWER EXTREMITIES. STEADY GAIT. PT PLACED ON FULL AMMONIA OPERATOR. ER TO EVALUATE PT.
[2018-09-05] MEDS ORDERED: IPRATROPIUM 0.02% 0.5 MG/2.5 ML NEBU INH ONE (12:00)
[2018-09-05] MEDS ORDERED: ONDANSETRON 4 MG/2 ML VIAL IVP ONE (12:00)
[2018-09-05] MEDS ORDERED: NITROGLYCERIN 2% 1 GM PKT TP ONE (12:00)
[2018-09-05] MEDS ORDERED: ASPIRIN 81 MG TAB.CHEW PO ONE (12:00)
[2018-09-05] MEDS ORDERED: ALBUTEROL 0.083% 2.5 MG/3 ML NEBU INH ONE ×2 (12:00→13:45)
[2018-09-05] MEDS ORDERED: methylPREDNISolone SS 125 MG in WATER STERILE 2 ML IV ONE (12:00)
--- NOTE | 2018-09-05 12:10 | NUR ---
refurbish technician at bedside.
--- NOTE | 2018-09-05 12:12 | NUR ---
Breathing treatment administered at bedside by respiratory therapist.
--- NOTE | 2018-09-05 12:30 | NUR ---
IV INITIATION ATTEMPTED X3. PT REFUSED IV AT THIS TIME. DR THURMAN MADE AWARE.
[2018-09-05 13:04] LABS: BASOPHILS # (AUTO) 0.1 K/uL (0.00-0.22); BASOPHILS % (AUTO) 1.1 % (0.0-2.0); EOSINOPHILS # (AUTO) 0.1 K/uL (0-0.4); EOSINOPHILS % (AUTO) 1.2 % (0.0-4.0); HEMATOCRIT 43.1 % (36-48); HEMOGLOBIN 13.9 g/dL (12.0-16.0); LYMPHOCYTES # (AUTO) 2.3 K/uL (2.5-16.5); LYMPHOCYTES % (AUTO) 23.8 % (20.5-51.1); MEAN CORPUSCULAR HEMOGLOBIN 28 pg (27-31); MEAN CORPUSCULAR HGB CONC 32 g/dL (33-37); MEAN CORPUSCULAR VOLUME 85.6 fL (80-94); MONOCYTES # (AUTO) 0.5 K/uL (0.8-1.0); MONOCYTES % (AUTO) 4.8 % (1.7-9.3); NEUTROPHILS # (AUTO) 6.7 K/uL (1.8-7.7); NEUTROPHILS % (AUTO) 69.1 % (42.2-75.2); PLATELET COUNT (AUTO) 327 K/uL (140-450); RED BLOOD CELL COUNT(AUTO) 5.04 MIL/uL (4.20-5.40); RED CELL DISTRIBUTION WIDTH 15.1 % (11.6-13.7); WHITE BLOOD COUNT (AUTO) 9.6 K/uL (4.8-10.8)
[2018-09-05] MEDS ORDERED: KETOROLAC 15 MG/ML VIAL IVP ONE ×2 (13:45→18:40)
[2018-09-05 13:46] LABS: APPEARANCE,URINE CLEAR (CLEAR); BILIRUBIN,URINE NEGATIVE (NEGATIVE); BLOOD, URINE TRACE-I (NEGATIVE); LEUKOCYTE ESTERASE ,URINE NEGATIVE (NEGATIVE); NITRITE, URINE NEGATIVE (NEGATIVE); UGLUCOSE 3+ (NEGATIVE)
[2018-09-05 13:46] LABS: ANION GAP 13.2 (8-16); CARBON DIOXIDE 27.8 mmol/L (21-32); CREATININE 0.8 mg/dL (0.6-1.3)
--- NOTE | 2018-09-05 13:50 | NUR ---
RT AT BEDSIDE
[2018-09-05 13:51] LABS: COLOR,URINE STRAW (YELLOW)
[2018-09-05 13:52] LABS: ALBUMIN 3.5 g/dL (3.4-5.0); TOTAL BILIRUBIN 0.6 mg/dL (0.0-1.0)
[2018-09-05] MEDS ORDERED: INSULIN REGULAR, HUMAN 100 UNIT/ML VIAL SUBQ ONE (14:00)
[2018-09-05 14:04] LABS: RBC,URINE 0-5 /HPF (0-5)
[2018-09-05] MEDS ORDERED: LEVOFLOXACIN 500 MG/D5W PREMIX 100 ML IV ONE (14:40)
--- NOTE | 2018-09-05 15:36 | NUR ---
IV INFILTRATION TO RFA. IV DISCONTINUED.
--- NOTE | 2018-09-05 16:05 | NUR ---
Dr. Barnett evaluating patient at bedside.
--- NOTE | 2018-09-05 16:57 | NUR ---
CALLED [facility] AT [phone] EXT [phone] AND SPOKE TO KOFFI BOWMAN FOR PATIENT REPORT.
[2018-09-05 18:00] VITALS: BP 144/82
--- NOTE | 2018-09-05 19:02 | NUR ---
Patient to be transferred to [facility]. Is being transferred due to COPD EXACERBATION, UTI, DM UNCONTROLLED. Receiving facility has accepting physician and available space. ER physician has signed transfer form. Patient or responsible libertarian has agreed to transfer and signed form. Patient belongings inventoried and will be sent with patient. Copy of nursing notes, lab reports, EKG, Physicians Orders and X-rays to be sent with patient. Report called to KOFFI BOWMAN at receiving facility. [facility] ambulance service has been called for transfer. ETA is 20 MINS.
--- NOTE | 2018-09-05 19:02 | NUR ---
[facility] at bedside for transfer.
--- NOTE | 2018-09-07 17:55 | NUR ---
CALLED [facility] AT [phone] AND SPOKE TO KOFFI BLACK ABOUT A CRITICAL LAB REPORT. OBTAINED FAX # TO SEND OVER CONSENT FORM.
--- NOTE | 2018-09-07 18:10 | NUR ---
FAXED PT CONSENT FORM TO [facility] AT FAX # . AWAITING FOR PT'S CONSENT FORM BACK.
== END 2018-09-05 19:02 | disposition short-term general hospital (02) ==
LOC: MED 11:27
DX: J44.1 Chronic obstructive pulmonary disease with (acute) exacerbation (principal); E11.65 Type 2 diabetes mellitus with hyperglycemia; N39.0 Urinary tract infection, site not specified; I11.0 Hypertensive heart disease with heart failure; I50.9 Heart failure, unspecified; Z79.891 Long term (current) use of opiate analgesic; Z79.84 Long term (current) use of oral hypoglycemic drugs; Z79.899 Other long term (current) drug therapy; Z88.1 Allergy status to other antibiotic agents; Z88.5 Allergy status to narcotic agent; Z87.891 Personal history of nicotine dependence
CPT/HCPCS: 36415; 71045; 80053; 81001; 81025; 82948; 83605; 83880; 84484; 85025; 87040; 87086; 94640; 96365; 96366; 96372; 96375; 99285; J1815; J1885; J1956; J2405; J2930; J7613; J7644; Q0092; 93005

== ENCOUNTER 2018-10-07 07:38 | Emergency (ER) | payer MEDICAID ==
[~2018-10-07] VITALS: Ht 157.5 cm; Wt 106.1 kg
[~2018-10-07 07:38] MED LIST changes: -ACET-8386 PO; -LORA-476 PO; -QUET100T PO; -ROBAC PO
[2018-10-07 07:45] VITALS: BP 90/54
[2018-10-07] MEDS ORDERED: ALBUTEROL SULFATE/IPRATROPIU 3 ML SOL IH ONE (07:45)
[2018-10-07] MEDS ORDERED: ALBUTEROL 0.083% 2.5 MG/3 ML NEBU INH ONE (07:50)
[2018-10-07] MEDS ORDERED: FUROSEMIDE 40 MG/4 ML VIAL IVP ONE (07:55)
[2018-10-07] MEDS ORDERED: KETOROLAC 30 MG/ML VIAL IVP ONE (07:55)
[2018-10-07] MEDS ORDERED: QUET100T PO (08:28)
[2018-10-07] MEDS ORDERED: LORA-476 PO (08:28)
[2018-10-07 08:40] LABS: BASOPHILS # (AUTO) 0.1 K/uL (0.00-0.22); BASOPHILS % (AUTO) 0.8 % (0.0-2.0); EOSINOPHILS # (AUTO) 0.4 K/uL (0-0.4); EOSINOPHILS % (AUTO) 3.8 % (0.0-4.0); HEMATOCRIT 34.9 % (36-48); HEMOGLOBIN 11.1 g/dL (12.0-16.0); LYMPHOCYTES # (AUTO) 1.9 K/uL (2.5-16.5); MEAN CORPUSCULAR HEMOGLOBIN 27 pg (27-31); MEAN CORPUSCULAR HGB CONC 32 g/dL (33-37); MEAN CORPUSCULAR VOLUME 85.5 fL (80-94); MONOCYTES # (AUTO) 0.6 K/uL (0.8-1.0); MONOCYTES % (AUTO) 5.2 % (1.7-9.3); NEUTROPHILS # (AUTO) 8.3 K/uL (1.8-7.7); NEUTROPHILS % (AUTO) 73.2 % (42.2-75.2); PLATELET COUNT (AUTO) 326 K/uL (140-450); RED BLOOD CELL COUNT(AUTO) 4.08 MIL/uL (4.20-5.40); RED CELL DISTRIBUTION WIDTH 14.6 % (11.6-13.7); WHITE BLOOD COUNT (AUTO) 11.3 K/uL (4.8-10.8)
[2018-10-07 08:47] LABS: CARBON DIOXIDE 29.8 mmol/L (21-32); CREATININE 0.7 mg/dL (0.6-1.3); POTASSIUM 3.8 mmol/L (3.5-5.1)
[2018-10-07 08:53] LABS: ALBUMIN 2.7 g/dL (3.4-5.0); TOTAL BILIRUBIN 0.4 mg/dL (0.0-1.0)
[2018-10-07 09:37] VITALS: BP 97/56
== END 2018-10-07 09:37 | disposition home or self-care (01) ==
LOC: MED 07:38
DX: I11.0 Hypertensive heart disease with heart failure (principal); I50.9 Heart failure, unspecified; J44.9 Chronic obstructive pulmonary disease, unspecified; E11.9 Type 2 diabetes mellitus without complications; Z98.890 Other specified postprocedural states; Z79.899 Other long term (current) drug therapy; Z79.51 Long term (current) use of inhaled steroids; Z79.82 Long term (current) use of aspirin; Z79.4 Long term (current) use of insulin; Z88.1 Allergy status to other antibiotic agents; Z88.5 Allergy status to narcotic agent
CPT/HCPCS: 36415; 71045; 80053; 83880; 84484; 85025; 93005; 94640; 96374; 96375; 99284; J1885; J1940; J7620

== ENCOUNTER 2019-05-08 00:02 | Emergency (ER) | payer MEDICAID ==
[~2019-05-08] VITALS: Ht 154.9 cm; Wt 94.8 kg
[~2019-05-08 00:02] MED LIST changes: -ADA60 PO; -ASPI-1718 PO; +ASPI-1822 PO; +LORA-476 PO; +NIFE-183 PO; +QUET100T PO
[2019-05-08 00:08] VITALS: BP 120/50
--- NOTE | 2019-05-08 00:26 | NUR ---
PT TAKEN TO BED 5
--- NOTE | 2019-05-08 00:31 | NUR ---
Dr. Zhong examining patient.
--- NOTE | 2019-05-08 00:32 | NUR ---
59 YEAR OLD FEMALE COMPLAINS OF LEFT CHEEK SWELLING AND RIGHT HAND HURTING SINCE YESTERDAY. PATIENT ALERT AND AWAKE, BREATHING EVEN AND UNLABORED, SKIN WARM AND DRY. BED IN LOWEST POSITION, LOCKED, BED RAIL UPX1. DR MADRIGAL AT BEDSIDE ALLERGIES - CEPHALEXIN, MORPHINE
[2019-05-08 00:50] VITALS: BP 120/50
--- NOTE | 2019-05-08 00:50 | NUR ---
Patient discharged with v/s stable. Written and verbal after care instructions about contact dermatitis given and explained. Patient alert, oriented and verbalized understanding of instructions. Ambulatory with steady gait. All questions addressed prior to discharge. ID band removed. Patient advised to follow up with PMD. Rx of hydrocortisone and diphenhydramine given. Patient educated on indication of medication including possible reaction and side effects. Opportunity to ask questions provided and answered.
== END 2019-05-08 00:50 | disposition home or self-care (01) ==
LOC: MED 00:02
DX: L23.9 Allergic contact dermatitis, unspecified cause (principal); J45.909 Unspecified asthma, uncomplicated; I50.9 Heart failure, unspecified; I11.0 Hypertensive heart disease with heart failure; J44.9 Chronic obstructive pulmonary disease, unspecified; E11.9 Type 2 diabetes mellitus without complications; Z88.5 Allergy status to narcotic agent; Z91.09 Other allergy status, other than to drugs and biological substances; Z79.899 Other long term (current) drug therapy; Z79.4 Long term (current) use of insulin; Z79.82 Long term (current) use of aspirin
CPT/HCPCS: 99282

== ENCOUNTER 2019-06-04 04:40 | Emergency (ER) | payer MEDICAID ==
[~2019-06-04] VITALS: Ht 154.9 cm; Wt 106.6 kg
[2019-06-04 04:43] VITALS: BP 150/112
--- NOTE | 2019-06-04 04:50 | NUR ---
59 Y/O FEMALE C/O LEFT/RIGHT EYE BLURRY VISION WITH NO PRECIPITATING FACTORS. PT DENIES ANY EYE TRAUMA. NO DRAINAGE NOTED. PT STATES SHE FELT LIKE AROUND HER EYES WAS SWOLLEN THIS MORNING AND APPLIED A MENTHOL OINTMENT TO FACE . PT STATES SHE FELT LIKE SHE WAS SEEING BLACK SPOTS WHEN SHE LOOKED IN THE MIRROR. NO BLACK SPOTS NOTED WHEN LOOKED AT PT'S EYES. DENIES N/V/D; SKIN IS PINK/WARM/DRY; AAOX4 WITH EVEN AND STEADY GAIT; PT DENIES ANY FEVER, CP, SOB, OR COUGH AT THIS TIME; VSS; PATIENT POSITIONED FOR COMFORT; HOB ELEVATED; BEDRAILS UP X1; BED DOWN AND LOCKED. ER MD MADE AWARE OF PT STATUS. MEDICAL HX: COPD/HTN/DM/BIPOLAR/SCHIZOPHRENIA ALLERGIES: CEPHALEXIN/MORPHINE
--- NOTE | 2019-06-04 04:56 | NUR ---
PT AMBULATED TO ER BED4
--- NOTE | 2019-06-04 05:04 | NUR ---
PT EVALUATED BY MIKAELA
[2019-06-04] MEDS ORDERED: KETOROLAC 60 MG/2 ML VIAL IM ONE (05:05)
[2019-06-04 05:30] VITALS: BP 150/112
--- NOTE | 2019-06-04 05:30 | NUR ---
Patient discharged with v/s stable. Written and verbal after care instructions given and explained. Patient alert, oriented and verbalized understanding of instructions. Ambulatory with steady gait. All questions addressed prior to discharge. ID band removed. Patient advised to follow up with PMD. Rx of KETOROLAC TROMETHAMINE 0.5% OPHTHALMIC SOLN. given. Patient educated on indication of medication including possible reaction and side effects. Opportunity to ask questions provided and answered.
== END 2019-06-04 05:30 | disposition home or self-care (01) ==
LOC: MED 04:40
DX: H11.422 Conjunctival edema, left eye (principal); E11.9 Type 2 diabetes mellitus without complications; I10 Essential (primary) hypertension; I50.9 Heart failure, unspecified; J44.9 Chronic obstructive pulmonary disease, unspecified; Z88.5 Allergy status to narcotic agent; Z88.1 Allergy status to other antibiotic agents; Z79.82 Long term (current) use of aspirin; Z79.899 Other long term (current) drug therapy
CPT/HCPCS: 96372; 99283; J1885

== ENCOUNTER 2019-07-06 19:31 | Emergency (ER) | payer MEDICAID ==
[~2019-07-06] VITALS: Ht 154.9 cm; Wt 96.6 kg
[2019-07-06 19:39] VITALS: BP 118/85
--- NOTE | 2019-07-06 19:42 | NUR ---
PT AMBULATED TO CHAIR A WITH STEADY GAIT.
--- NOTE | 2019-07-06 20:00 | NUR ---
59 YO F BIB SELF FOR C/C OF 10/10 BODY PAIN AND PT STATES "SOMETHING CRAWLED IN HER EYE ABOUT TWO MONTHS AGO AND IT IS UNDER MY SKIN AND MAKING MY HANDS RED." PT STATES SHE WAS SEEN HERE A FEW WEEKS AGO AND WAS TOLD THAT EVERYTHING WAS NORMAL AND WAS PRESCIBED HAND CREAM FOR HER HANDS WITH NO RELIEF. PUPILS ARE EQUAL AT 3MM BUT NOT REACTIVE TO LIGHT. SCLERA IS SLIGHTLY YELLOW BUT NO REDNESS OR OTHER IRRITATIONS VISUALIZED. PTS PALMS ARE SLIGHTLY RED. PT RESTING COMFORTABLY IN CHAIR COMFORTBALY. ALLERGIES TO CEPHALEXIN, MORPHINE MED HX: DM2, HTN, BIPOLAR NO RX
[2019-07-06 20:10] VITALS: BP 118/85
--- NOTE | 2019-07-06 20:20 | NUR ---
PT AMBULATED TO RR TO PROVIDE URINE SAMPLE
--- NOTE | 2019-07-06 20:30 | NUR ---
PT RETURNED TO CHAIR FROM RR WITH URINE SAMPLE
--- NOTE | 2019-07-06 21:02 | NUR ---
PATIENT ELOPED FROM FACILITY. DISCHARGE INSTRUCTIONS NOT GIVEN TO PATIENT. NOTIFIED.
[2019-07-06 21:09] LABS: BARBITURATE, URINE NEGATIVE ng/ml (NEG <=200); BENZODIAZEPINE, URINE NEGATIVE ng/mL (NEG <=200); CANNABINOID, URINE NEGATIVE ng/mL (NEG <=50); COCAINE, URINE NEGATIVE ng/mL (NEG <=300); OPIATE, URINE NEGATIVE ng/mL (NEG <=2000); PHENCYCLIDINE SCREEN,URINE NEGATIVE ng/mL (NEG <=25)
== END 2019-07-06 21:02 | disposition left against medical advice (07) ==
LOC: MED 19:31
DX: F15.10 Other stimulant abuse, uncomplicated (principal); R44.2 Other hallucinations; J44.9 Chronic obstructive pulmonary disease, unspecified; I11.0 Hypertensive heart disease with heart failure; E11.9 Type 2 diabetes mellitus without complications; Z79.899 Other long term (current) drug therapy; Z88.5 Allergy status to narcotic agent; Z88.1 Allergy status to other antibiotic agents; Z79.84 Long term (current) use of oral hypoglycemic drugs; Z79.82 Long term (current) use of aspirin
CPT/HCPCS: 80305; 99283

== ENCOUNTER 2022-09-17 12:18 | Emergency (ER) | payer MEDICAID ==
[~2022-09-17] VITALS: Ht 157.5 cm; Wt 89.8 kg
[~2022-09-17 12:18] MED LIST changes: +CLON0.1T16 PO; -CLON0.1T42 PO
[2022-09-17 12:42] VITALS: BP 107/70; PULSE 87; RESP 18; TEMP 98; O2SAT 99
[2022-09-17] MEDS ORDERED: KETOROLAC 30 MG/ML VIAL IM ONE (13:20)
[2022-09-17] MEDS ORDERED: GABAPENTIN 300 MG CAP PO ONE (14:00)
--- NOTE | 2022-09-17 14:07 | NUR ---
ROBEL Olvera re-evaluating patient at bedside.
[2022-09-17] MEDS ORDERED: GABA300C PO (14:15)
[2022-09-17] MEDS ORDERED: IBUP-2213 PO (14:15)
[2022-09-17 14:45] VITALS: BP 115/73; PULSE 83; RESP 18; TEMP 97.5; O2SAT 98
--- NOTE | 2022-09-17 14:45 | NUR ---
Patient's pain is decreasing. Patient is ready to be discharged. Patient discharged with v/s stable. Written and verbal after care instructions given. Patient alert, oriented and verbalized understanding of instructions. Ambulatory with steady gait. All questions addressed prior to discharge. ID band removed. Patient advised to follow up with PMD. Rx of Neurontin and Ibuprofen given. Opportunity to ask questions provided and answered. WORK NOTE HANDED TO PATIENT.
--- NOTE | 2022-09-17 15:55 | NUR ---
The patient's care was reviewed and supervised by BEHZAD OWENS RN.
[2022-09-17 18:38] LABS: APPEARANCE,URINE CLEAR (CLEAR); BILIRUBIN,URINE NEGATIVE (NEGATIVE); BLOOD, URINE 2+ (NEGATIVE); COLOR,URINE YELLOW (YELLOW); LEUKOCYTE ESTERASE ,URINE TRACE (NEGATIVE); NITRITE, URINE POSITIVE (NEGATIVE); UGLUCOSE NEGATIVE (NEGATIVE)
== END 2022-09-17 14:45 | disposition home or self-care (01) ==
LOC: MED 12:18
DX: M54.16 Radiculopathy, lumbar region (principal); R60.9 Edema, unspecified; J45.909 Unspecified asthma, uncomplicated; J44.9 Chronic obstructive pulmonary disease, unspecified; I11.0 Hypertensive heart disease with heart failure; E11.9 Type 2 diabetes mellitus without complications; Z79.4 Long term (current) use of insulin; Z79.899 Other long term (current) drug therapy; Z79.1 Long term (current) use of non-steroidal anti-inflammatories (NSAID); Z88.8 Allergy status to other drugs, medicaments and biological substances
CPT/HCPCS: 81001; 87086; 96372; 99283; J1885